=== PATIENT | male | born 1960 | race Caucasian/White ===

== ENCOUNTER 2017-08-18 01:05 | Emergency (ER) | payer MEDICAID ==
[~2017-08-18] VITALS: Ht 172.7 cm; Wt 67.8 kg
[~2017-08-18 01:05] MED LIST: CIPR500T87 PO; METR500T8 PO; PRED10TA PO; PRED20TA PO
[2017-08-18 01:07] VITALS: BP 143/90
[2017-08-18] MEDS ORDERED: PERMETHRIN CRM 5%, 60GM TP SCH (02:00)
[2017-08-18] MEDS ORDERED: PERMETHRIN CRM 5%, 60GM ONE (02:14)
== END 2017-08-18 02:40 | disposition home or self-care (01) ==
LOC: ED 02:27
DX: R21 Rash and other nonspecific skin eruption (principal); J44.9 Chronic obstructive pulmonary disease, unspecified; K21.9 Gastro-esophageal reflux disease without esophagitis; Z59.0 Homelessness; Z90.49 Acquired absence of other specified parts of digestive tract
CPT/HCPCS: 99283

== ENCOUNTER 2017-08-21 12:03 | Emergency (ER) | payer MEDICAID ==
[~2017-08-21] VITALS: Ht 175.3 cm; Wt 68.3 kg
[2017-08-21 12:15] VITALS: BP 130/81
[2017-08-21] MEDS ORDERED: hydrOXyzine 50MG TABLET PO ONE (13:00)
== END 2017-08-21 13:09 | disposition home or self-care (01) ==
LOC: ED 13:00
DX: S40.261A Insect bite (nonvenomous) of right shoulder, initial encounter (principal); S40.862A Insect bite (nonvenomous) of left upper arm, initial encounter; S40.861A Insect bite (nonvenomous) of right upper arm, initial encounter; S50.362A Insect bite (nonvenomous) of left elbow, initial encounter; S50.361A Insect bite (nonvenomous) of right elbow, initial encounter; J44.9 Chronic obstructive pulmonary disease, unspecified; K21.9 Gastro-esophageal reflux disease without esophagitis; W57.XXXA Bitten or stung by nonvenomous insect and other nonvenomous arthropods, initial encounter; Y93.89 Activity, other specified; Y92.89 Other specified places as the place of occurrence of the external cause; Y99.8 Other external cause status
CPT/HCPCS: 99283

== ENCOUNTER 2017-08-28 16:30 | Emergency (ER) | payer MEDICAID ==
[~2017-08-28] VITALS: Ht 170.2 cm; Wt 72.7 kg
[2017-08-28 16:53] VITALS: BP 122/88
== END 2017-08-28 17:05 | disposition home or self-care (01) ==
LOC: ED 16:59
DX: B86 Scabies (principal); J44.9 Chronic obstructive pulmonary disease, unspecified; K21.9 Gastro-esophageal reflux disease without esophagitis; Z59.0 Homelessness
CPT/HCPCS: 99283

== ENCOUNTER 2018-05-29 15:37 | Emergency (ER) | payer SELFPAY ==
[~2018-05-29] VITALS: Ht 172.7 cm; Wt 63.6 kg
[2018-05-29 15:46] VITALS: BP 129/88
== END 2018-05-29 16:21 | disposition home or self-care (01) ==
LOC: ED 16:15
DX: S40.261A Insect bite (nonvenomous) of right shoulder, initial encounter (principal); S50.861A Insect bite (nonvenomous) of right forearm, initial encounter; S60.561A Insect bite (nonvenomous) of right hand, initial encounter; L03.113 Cellulitis of right upper limb; J44.9 Chronic obstructive pulmonary disease, unspecified; W57.XXXA Bitten or stung by nonvenomous insect and other nonvenomous arthropods, initial encounter; Y93.89 Activity, other specified; Y92.89 Other specified places as the place of occurrence of the external cause; Y99.8 Other external cause status
CPT/HCPCS: 99283

== ENCOUNTER 2018-05-30 06:05 | Emergency (ER) | payer SELFPAY ==
[~2018-05-30] VITALS: Ht 172.7 cm; Wt 64.5 kg
[2018-05-30 06:12] VITALS: BP 144/92
== END 2018-05-30 06:55 | disposition home or self-care (01) ==
LOC: ED 06:30
DX: J34.0 Abscess, furuncle and carbuncle of nose (principal); L03.213 Periorbital cellulitis; L03.113 Cellulitis of right upper limb; K21.9 Gastro-esophageal reflux disease without esophagitis; J44.9 Chronic obstructive pulmonary disease, unspecified; F10.20 Alcohol dependence, uncomplicated; Z90.89 Acquired absence of other organs; Z59.0 Homelessness
CPT/HCPCS: 99283

== ENCOUNTER 2018-06-01 10:31 | Emergency (ER) | payer SELFPAY ==
[~2018-06-01] VITALS: Ht 172.7 cm; Wt 63.6 kg
[2018-06-01 10:53] VITALS: BP 130/80
== END 2018-06-01 11:30 | disposition home or self-care (01) ==
LOC: ED 11:24
DX: J34.0 Abscess, furuncle and carbuncle of nose (principal); L03.113 Cellulitis of right upper limb; F10.20 Alcohol dependence, uncomplicated; K21.9 Gastro-esophageal reflux disease without esophagitis; J44.9 Chronic obstructive pulmonary disease, unspecified; Z59.0 Homelessness
CPT/HCPCS: 99283

== ENCOUNTER 2018-07-05 11:37 | Emergency (ER) | payer OTHER ==
[~2018-07-05] VITALS: Ht 175.3 cm; Wt 64.0 kg
[2018-07-05 11:39] VITALS: BP 117/78
[2018-07-05] MEDS ORDERED: DIPH,PERTUSS(ACELL),TET VAC/PF 0.5 ML IM-VACC ONE ×2 (12:00→12:37)
== END 2018-07-05 12:56 | disposition home or self-care (01) ==
LOC: ED 11:47
DX: S01.81XA Laceration without foreign body of other part of head, initial encounter (principal); S01.412A Laceration without foreign body of left cheek and temporomandibular area, initial encounter; S00.31XA Abrasion of nose, initial encounter; K21.9 Gastro-esophageal reflux disease without esophagitis; J44.9 Chronic obstructive pulmonary disease, unspecified; F17.200 Nicotine dependence, unspecified, uncomplicated; W01.0XXA Fall on same level from slipping, tripping and stumbling without subsequent striking against object, initial encounter; Y93.01 Activity, walking, marching and hiking; Y92.410 Unspecified street and highway as the place of occurrence of the external cause; Y99.9 Unspecified external cause status
CPT/HCPCS: 12052; 90471; 90715

== ENCOUNTER 2018-07-10 11:31 | Emergency (ER) | payer MEDICAID, OTHER ==
[~2018-07-10] VITALS: Ht 172.7 cm; Wt 71.2 kg
[2018-07-10] MEDS ORDERED: BACITRACIN ZINC OINT 500U/GM, 0.9 GM ONE (12:12)
[2018-07-10 12:19] VITALS: BP 122/81
== END 2018-07-10 12:29 | disposition home or self-care (01) ==
LOC: ED 11:54
DX: Z48.02 Encounter for removal of sutures (principal); K21.9 Gastro-esophageal reflux disease without esophagitis; J44.9 Chronic obstructive pulmonary disease, unspecified; F17.200 Nicotine dependence, unspecified, uncomplicated; Z72.9 Problem related to lifestyle, unspecified; Z90.89 Acquired absence of other organs; Z87.01 Personal history of pneumonia (recurrent); Z87.09 Personal history of other diseases of the respiratory system; Z87.2 Personal history of diseases of the skin and subcutaneous tissue
CPT/HCPCS: 99281

== ENCOUNTER 2018-07-12 12:42 | Inpatient (IN) | payer MEDICAID, OTHER ==
[~2018-07-12] VITALS: Ht 172.7 cm; Wt 67.0 kg
[2018-07-12 13:21] LABS: MEAN CORPUSCULAR HEMOGLOBIN 33.2 pg (27.5-34.5); MEAN CORPUSCULAR VOLUME 97.7 fL (81-97); MEAN PLATELET VOLUME 7.2 fL (7.4-10.4); PLATELET COUNT 175 x10^3/uL (130-400); RED BLOOD COUNT 3.71 x10^6/uL (4.38-5.82); RED CELL DISTRIBUTION WIDTH 12.8 % (9.4-14.8)
[2018-07-12] MEDS ORDERED: ACETAMINOPHEN 500 MG TABLET ONE (13:22)
[2018-07-12] MEDS ORDERED: SODIUM CHLORIDE 0.9% 1,000ML IVBOLUS ONE ×2 (13:30)
[2018-07-12] MEDS ORDERED: SODIUM CHLORIDE FLUSH 10ML SYR IVF ONE (13:30)
[2018-07-12] MEDS ORDERED: ACETAMINOPHEN 500 MG TABLET PO ONE (13:30)
[2018-07-12] MEDS ORDERED: CEFTRIAXONE PMX 1GM/50ML 50 ML IV ONE (13:30)
[2018-07-12] MEDS ORDERED: ALBUTEROL/IPRATROPIUM 2.5MG/0.5MG, 3 ML NPPB ONE (13:30)
[2018-07-12 13:34] LABS: INTERNATIONAL NORMALIZED RATIO 1.03 (0.93-1.1); PROTHROMBIN TIME 10.9 Seconds (9.6-11.5)
[2018-07-12 13:35] LABS: ALANINE AMINOTRANSFERASE 17 U/L (12-78); ALBUMIN 2.9 g/dL (3.4-5.0); ANION GAP 10 mmol/L (5-15); CALCIUM 7.5 mg/dL (8.5-10.1); CHLORIDE 103 mmol/L (98-107); CREATININE 0.87 mg/dL (0.7-1.3)
[2018-07-12 13:37] LABS: ALKALINE PHOSPHATASE 70 U/L (45-117); BILIRUBIN,TOTAL 0.8 mg/dL (0.2-1.0); TOTAL PROTEIN 6.9 g/dL (6.4-8.2)
[2018-07-12] MEDS ORDERED: ALBUTEROL/IPRATROPIUM 2.5MG/0.5MG, 3 ML ONE (13:40)
[2018-07-12 14:09] LABS: MD YES
[2018-07-12 14:10] LABS: BAND#(MANUAL) 1.12 x10^3/uL; BANDS%(MANUAL) 11 % (0-7); LYMPH#(MANUAL) 1.02 x10^3/uL (1-3.4); LYMPHS% (MANUAL) 10 % (22-44); MONOS#(MANUAL) 0.31 x10^3/uL (0.3-2.7); MONOS% (MANUAL) 3 % (2-9); SEG#(MANUAL) 7.75 x10^3/uL (1.8-6.8); SEGS% (MANUAL) 76 % (42-75)
[2018-07-12 14:11] LABS: <PLATELET ESTIMATE> ADEQUATE; <PLT MORPHOLOGY> NORMAL PLT MORPH; <RBC MORPHOLOGY> NORMAL
[2018-07-12 14:13] LABS: MICROSCOPIC NOT IND
[2018-07-12 14:14] LABS: CULTURE INDICATED? NO
[2018-07-12] MEDS ORDERED: CEFTRIAXONE PMX 1GM/50ML 50 ML ONE (14:19)
[2018-07-12] MEDS ORDERED: OMNIPAQUE 350 MG/ML, 100ML BOTTLE ONE (14:29)
[2018-07-12] MEDS ORDERED: AZITHROMYCIN 500 MG in SODIUM CHLORIDE 0.9% 250 ML IV ONE (15:00)
[2018-07-12 15:22] LABS: RAPID INFLUENZA A Negative (Negative); RAPID INFLUENZA B Negative (Negative)
[2018-07-12 15:45] VITALS: BP 103/69
[2018-07-12] MEDS ORDERED: DOCUSATE 100 MG CAPSULE PO PRN (16:00)
[2018-07-12] MEDS ORDERED: ONDANSETRON 2MG/ML, 2ML IVPush PRN (16:00)
[2018-07-12] MEDS ORDERED: LABETALOL 5MG/ML, 20ML IVPush PRN (16:00)
[2018-07-12] MEDS ORDERED: IBUPROFEN 600 MG TABLET PO PRN (16:00)
[2018-07-12] MEDS ORDERED: BISACODYL 10 MG SUPP PR PRN (16:00)
[2018-07-12] MEDS ORDERED: ONDANSETRON ODT 4 MG PO PRN (16:00)
[2018-07-12] MEDS ORDERED: POLYETHYLENE GLYCOL 17 GM PACKET PO PRN (16:00)
[2018-07-12] MEDS ORDERED: ENALAPRILAT 1.25 MG/ML, 2ML IVPush PRN (16:00)
[2018-07-12] MEDS: NS + 20MEQ KCL 1,000 ML IV SCH (16:09)
[2018-07-12] MEDS: ENOXAPARIN 40 MG/0.4 ML SQ SCH (16:25)
[2018-07-12 16:30] VITALS: BP 103/69
[2018-07-12] MEDS: ALBUTEROL/IPRATROPIUM 2.5MG/0.5MG, 3 ML NPPB SCH (18:12)
[2018-07-12 18:49] VITALS: BP 101/59
[2018-07-13] MEDS: NS + 20MEQ KCL 1,000 ML IV SCH ×3 (00:03→17:48)
[2018-07-13 01:27] VITALS: BP 96/63
[2018-07-13 05:46] LABS: MEAN CORPUSCULAR HEMOGLOBIN 33.6 pg (27.5-34.5); MEAN CORPUSCULAR HGB CONC 34.2 g/dL (33.2-36.2); MEAN CORPUSCULAR VOLUME 98.1 fL (81-97); MEAN PLATELET VOLUME 7.6 fL (7.4-10.4); PLATELET COUNT 162 x10^3/uL (130-400); RED BLOOD COUNT 3.62 x10^6/uL (4.38-5.82); RED CELL DISTRIBUTION WIDTH 13.3 % (9.4-14.8)
[2018-07-13 05:50] LABS: ANION GAP 6 mmol/L (5-15); CHLORIDE 111 mmol/L (98-107)
[2018-07-13 05:52] LABS: CREATININE 0.71 mg/dL (0.7-1.3)
[2018-07-13 06:09] LABS: MD YES
[2018-07-13 06:12] LABS: BAND#(MANUAL) 1.48 x10^3/uL; BANDS%(MANUAL) 20 % (0-7); LYMPH#(MANUAL) 1.11 x10^3/uL (1-3.4); LYMPHS% (MANUAL) 15 % (22-44); MONOS#(MANUAL) 0.44 x10^3/uL (0.3-2.7); MONOS% (MANUAL) 6 % (2-9); SEG#(MANUAL) 4.37 x10^3/uL (1.8-6.8); SEGS% (MANUAL) 59 % (42-75)
[2018-07-13 06:13] LABS: <PLATELET ESTIMATE> ADEQUATE; <PLT MORPHOLOGY> NORMAL PLT MORPH; <RBC MORPHOLOGY> NORMAL
[2018-07-13 06:45] VITALS: BP 112/66
[2018-07-13] MEDS: ALBUTEROL/IPRATROPIUM 2.5MG/0.5MG, 3 ML NPPB SCH ×4 (07:05→20:10)
[2018-07-13 13:13] VITALS: BP 124/63
[2018-07-13] MEDS: CEFTRIAXONE PMX 1GM/50ML 50 ML IV SCH (13:29)
[2018-07-13] MEDS: ACETAMINOPHEN 325 MG TABLET PO PRN ×2 (13:29→17:48)
[2018-07-13] MEDS: AZITHROMYCIN 500 MG in SODIUM CHLORIDE 0.9% 250 ML IV SCH (15:00)
[2018-07-13] MEDS: ENOXAPARIN 40 MG/0.4 ML SQ SCH (17:48)
[2018-07-13 18:48] VITALS: BP_SYST 117; BP_SYST 97; BP_DIAS 57; BP_DIAS 80
[2018-07-14] MEDS: NS + 20MEQ KCL 1,000 ML IV SCH (00:47)
[2018-07-14 01:37] VITALS: BP 101/62
[2018-07-14] MEDS: GUAIFENESIN/DM 200-20MG, 10ML UDC PO PRN (05:04)
[2018-07-14 06:47] VITALS: BP 109/70
[2018-07-14] MEDS: ALBUTEROL/IPRATROPIUM 2.5MG/0.5MG, 3 ML NPPB SCH ×2 (07:35→10:05)
[2018-07-14 12:34] VITALS: BP 115/73
[2018-07-14] MEDS: CEFTRIAXONE PMX 1GM/50ML 50 ML IV SCH (13:11)
[2018-07-14] MEDS ORDERED: ALBUTEROL/IPRATROPIUM 2.5MG/0.5MG, 3 ML NPPB PRN (15:30)
[2018-07-14] MEDS: AZITHROMYCIN 500 MG in SODIUM CHLORIDE 0.9% 250 ML IV SCH (16:06)
[2018-07-14] MEDS: ACETAMINOPHEN 325 MG TABLET PO PRN (16:06)
[2018-07-14] MEDS: ENOXAPARIN 40 MG/0.4 ML SQ SCH (16:06)
[2018-07-14 19:36] VITALS: BP 114/72
[2018-07-15] MEDS: GUAIFENESIN/DM 200-20MG, 10ML UDC PO PRN ×2 (00:40→15:22)
[2018-07-15 01:38] VITALS: BP 136/84
[2018-07-15 05:38] LABS: ANION GAP 6 mmol/L (5-15); CALCIUM 8.5 mg/dL (8.5-10.1); CHLORIDE 103 mmol/L (98-107); CREATININE 0.72 mg/dL (0.7-1.3)
[2018-07-15 07:51] VITALS: BP 94/54
[2018-07-15 12:45] VITALS: BP 112/77
[2018-07-15] MEDS: CEFTRIAXONE PMX 1GM/50ML 50 ML IV SCH (13:00)
[2018-07-15] MEDS ORDERED: AZIT500T5 PO (13:05)
[2018-07-15] MEDS ORDERED: OMEP-110 PO (13:06)
[2018-07-15] MEDS: AZITHROMYCIN 500 MG in SODIUM CHLORIDE 0.9% 250 ML IV SCH (15:00)
[2018-07-15] MEDS: ENOXAPARIN 40 MG/0.4 ML SQ SCH (16:00)
== END 2018-07-15 17:44 | disposition home or self-care (01) | DRG 871 ==
LOC: ED 15:00 → 3NE 15:31
PROVIDERS: ADMIT Internal Medicine; ATTEND Internal Medicine
DX: A41.9 Sepsis, unspecified organism (principal); E43 Unspecified severe protein-calorie malnutrition; J18.9 Pneumonia, unspecified organism; E87.1 Hypo-osmolality and hyponatremia; J44.0 Chronic obstructive pulmonary disease with (acute) lower respiratory infection; E83.39 Other disorders of phosphorus metabolism; E87.6 Hypokalemia; F17.210 Nicotine dependence, cigarettes, uncomplicated; K21.9 Gastro-esophageal reflux disease without esophagitis; K74.60 Unspecified cirrhosis of liver; Z59.0 Homelessness; Z87.01 Personal history of pneumonia (recurrent); F10.20 Alcohol dependence, uncomplicated; Z68.22 Body mass index [BMI] 22.0-22.9, adult
CPT/HCPCS: 36415; 84145; 87400; 99285; J7620; 71045; 71275; 80048; 80053; 81003; 83605; 83735; 84100; 85025; 85610; 85730; 87040; 87070; 87205; 93005; 94640; 96361; 96374; G0378; J0456; J0696; J1650; J3480; Q9967; J7030; J7050

== ENCOUNTER 2018-08-14 17:15 | Emergency (ER) | payer MEDICAID ==
[~2018-08-14] VITALS: Ht 172.7 cm; Wt 69.1 kg
[~2018-08-14 17:15] MED LIST changes: +AZIT500T5 PO; +METR-142 PO; -METR500T8 PO; +OMEP-110 PO
[2018-08-14 18:24] LABS: BASOPHILS # (AUTO) 0.04 x10^3/uL (0-0.1); BASOPHILS % (AUTO) 1 % (0-1); EOSINOPHILS # (AUTO) 0.09 x10^3/uL (0-0.4); EOSINOPHILS % (AUTO) 2 % (1-7); LYMPHOCYTES # (AUTO) 2.71 x10^3/uL (1-3.4); LYMPHOCYTES % (AUTO) 48 % (22-44); MD NO; MEAN CORPUSCULAR HEMOGLOBIN 33.7 pg (27.5-34.5); MEAN CORPUSCULAR HGB CONC 34.4 g/dL (33.2-36.2); MEAN CORPUSCULAR VOLUME 97.7 fL (81-97); MEAN PLATELET VOLUME 7.6 fL (7.4-10.4); MONOCYTES # (AUTO) 0.51 x10^3/uL (0.2-0.8); MONOCYTES % (AUTO) 9 % (2-9); NEUTROPHILS # (AUTO) 2.35 x10^3/uL (1.8-6.8); NEUTROPHILS % (AUTO) 41 % (42-75); PLATELET COUNT 183 x10^3/uL (130-400); RED BLOOD COUNT 4.24 x10^6/uL (4.38-5.82); RED CELL DISTRIBUTION WIDTH 14.9 % (9.4-14.8)
[2018-08-14] MEDS ORDERED: ALBUTEROL/IPRATROPIUM 2.5MG/0.5MG, 3 ML ONE (18:25)
[2018-08-14] MEDS ORDERED: ALBUTEROL/IPRATROPIUM 2.5MG/0.5MG, 3 ML NPPB ONE (18:30)
[2018-08-14 18:33] LABS: ALBUMIN 3.7 g/dL (3.4-5.0); ANION GAP 8 mmol/L (5-15); CALCIUM 8.3 mg/dL (8.5-10.1); CHLORIDE 104 mmol/L (98-107)
[2018-08-14 18:39] LABS: ALANINE AMINOTRANSFERASE 23 U/L (12-78); ALKALINE PHOSPHATASE 81 U/L (45-117); BILIRUBIN,TOTAL 0.6 mg/dL (0.2-1.0); CREATININE 0.86 mg/dL (0.7-1.3); TOTAL PROTEIN 8.1 g/dL (6.4-8.2); TROPONIN I < 0.015 ng/mL (0.000-0.045)
[2018-08-14 19:38] VITALS: BP 117/76
== END 2018-08-14 20:07 | disposition home or self-care (01) ==
LOC: ED 19:58
DX: J44.1 Chronic obstructive pulmonary disease with (acute) exacerbation (principal); J15.9 Unspecified bacterial pneumonia
CPT/HCPCS: 36415; 71046; 80053; 84484; 85025; 93005; 94640; 99284; J7512; J7620

== ENCOUNTER 2018-09-14 13:47 | Inpatient (IN) | payer MEDICAID ==
[~2018-09-14] VITALS: Ht 172.7 cm; Wt 68.2 kg
[~2018-09-14 13:47] MED LIST changes: -METR-142 PO; +METR-90 PO
[2018-09-14 14:21] LABS: BASOPHILS # (AUTO) 0.05 x10^3/uL (0-0.1); BASOPHILS % (AUTO) 1 % (0-1); EOSINOPHILS % (AUTO) 0 % (1-7); LYMPHOCYTES # (AUTO) 3.43 x10^3/uL (1-3.4); LYMPHOCYTES % (AUTO) 31 % (22-44); MD NO; MEAN CORPUSCULAR HEMOGLOBIN 33.2 pg (27.5-34.5); MEAN CORPUSCULAR HGB CONC 33.8 g/dL (33.2-36.2); MEAN CORPUSCULAR VOLUME 98.5 fL (81-97); MEAN PLATELET VOLUME 7.1 fL (7.4-10.4); MONOCYTES % (AUTO) 10 % (2-9); NEUTROPHILS # (AUTO) 6.41 x10^3/uL (1.8-6.8); NEUTROPHILS % (AUTO) 58 % (42-75); PLATELET COUNT 249 x10^3/uL (130-400); RED BLOOD COUNT 4.48 x10^6/uL (4.38-5.82); RED CELL DISTRIBUTION WIDTH 15.9 % (9.4-14.8)
[2018-09-14 14:29] LABS: ALBUMIN 4.3 g/dL (3.4-5.0); ANION GAP 10 mmol/L (5-15); CALCIUM 8.8 mg/dL (8.5-10.1); CHLORIDE 97 mmol/L (98-107)
[2018-09-14 14:34] LABS: ALANINE AMINOTRANSFERASE 28 U/L (12-78); ALKALINE PHOSPHATASE 96 U/L (45-117); BILIRUBIN,TOTAL 0.8 mg/dL (0.2-1.0); CREATININE 0.86 mg/dL (0.7-1.3); TOTAL PROTEIN 8.8 g/dL (6.4-8.2); TROPONIN I < 0.015 ng/mL (0.000-0.045)
[2018-09-14] MEDS: ALBUTEROL/IPRATROPIUM 2.5MG/0.5MG, 3 ML NPPB SCH ×3 (14:35→20:10)
--- NOTE | 2018-09-14 14:47 | NUR ---
Pt presents for backpain, SOB starting this AM. Pt 88% on RA. lungs coarse. Pt NAD.
[2018-09-14] MEDS ORDERED: ALBUTEROL/IPRATROPIUM 2.5MG/0.5MG, 3 ML ONE ×2 (14:56)
[2018-09-14] MEDS ORDERED: PIPERACILLIN/TAZO/PMX 3.375GM 50 ML IVPB ONE (16:00)
[2018-09-14] MEDS ORDERED: PIPERACILLIN/TAZO/PMX 3.375GM 50 ML ONE (16:04)
[2018-09-14] MEDS ORDERED: D5%-0.45NACL+KCL 20MEQ 1,000 ML IV SCH (16:08)
[2018-09-14] MEDS: NICOTINE 14MG/24 HR PATCH.TD24 TD SCH (16:30)
[2018-09-14] MEDS ORDERED: BACLOFEN 10 MG TABLET PO PRN (16:30)
[2018-09-14] MEDS ORDERED: ACETAMINOPHEN 325 MG TABLET PO PRN (16:30)
[2018-09-14] MEDS ORDERED: LORazepam 2 MG/ML, 1ML IV PRN (16:30)
[2018-09-14] MEDS ORDERED: LORazepam 1MG TABLET PO PRN (16:30)
[2018-09-14] MEDS ORDERED: THIAMINE 100MG TABLET PO ONE (16:30)
[2018-09-14] MEDS ORDERED: hydrALAzine 20 MG/ML, 1ML IVPush PRN (16:30)
[2018-09-14] MEDS ORDERED: SODIUM CHLORIDE 0.9% 1,000ML IVBOLUS PRN (16:30)
[2018-09-14] MEDS ORDERED: KETOROLAC 30 MG/1 ML IM PRN (16:30)
[2018-09-14] MEDS ORDERED: IBUPROFEN 600 MG TABLET PO PRN (16:30)
[2018-09-14] MEDS ORDERED: TRAZODONE 50MG TABLET PO PRN (16:30)
[2018-09-14 16:41] VITALS: BP 125/73
[2018-09-14 16:50] VITALS: BP 125/73
[2018-09-14] MEDS ORDERED: POTASSIUM CHLORIDE 20 MEQ, MAGNESIUM SULFATE 1 GM, MVI ADULT 10 ML, THIAMINE 200 MG, FO... IV SCH (17:00)
[2018-09-14] MEDS: POTASSIUM CHLORIDE 20 MEQ, MAGNESIUM SULFATE 1 GM, MVI ADULT 10 ML, THIAMINE 200 MG, FO... IV SCH (19:44)
[2018-09-14 19:48] VITALS: BP 117/70
[2018-09-14 21:03] LABS: TROPONIN I < 0.015 ng/mL (0.000-0.045)
[2018-09-14] MEDS: PIPERACILLIN/TAZO/PMX 4.5GM 100 ML IV SCH (22:14)
[2018-09-15 00:19] VITALS: BP 118/64
[2018-09-15] MEDS: D5%-0.45NACL+KCL 20MEQ 1,000 ML IV SCH ×3 (04:41→23:30)
[2018-09-15 06:02] LABS: BASOPHILS # (AUTO) 0.02 x10^3/uL (0-0.1); BASOPHILS % (AUTO) 0 % (0-1); EOSINOPHILS # (AUTO) 0.01 x10^3/uL (0-0.4); EOSINOPHILS % (AUTO) 0 % (1-7); LYMPHOCYTES # (AUTO) 1.61 x10^3/uL (1-3.4); LYMPHOCYTES % (AUTO) 21 % (22-44); MD NO; MEAN CORPUSCULAR HEMOGLOBIN 34.4 pg (27.5-34.5); MEAN CORPUSCULAR HGB CONC 34.8 g/dL (33.2-36.2); MEAN CORPUSCULAR VOLUME 98.8 fL (81-97); MEAN PLATELET VOLUME 7.7 fL (7.4-10.4); MONOCYTES # (AUTO) 0.58 x10^3/uL (0.2-0.8); MONOCYTES % (AUTO) 8 % (2-9); NEUTROPHILS % (AUTO) 71 % (42-75); PLATELET COUNT 199 x10^3/uL (130-400)
[2018-09-15] MEDS: PIPERACILLIN/TAZO/PMX 4.5GM 100 ML IV SCH ×3 (06:04→22:33)
[2018-09-15 06:12] LABS: ALBUMIN 3.4 g/dL (3.4-5.0); ANION GAP 8 mmol/L (5-15); CALCIUM 8.8 mg/dL (8.5-10.1); CHLORIDE 102 mmol/L (98-107)
[2018-09-15 06:16] LABS: ALANINE AMINOTRANSFERASE 21 U/L (12-78); ALKALINE PHOSPHATASE 81 U/L (45-117); BILIRUBIN,TOTAL 0.9 mg/dL (0.2-1.0); CREATININE 0.63 mg/dL (0.7-1.3); TOTAL PROTEIN 7.5 g/dL (6.4-8.2)
[2018-09-15] MEDS: ALBUTEROL/IPRATROPIUM 2.5MG/0.5MG, 3 ML NPPB SCH ×2 (06:46→19:51)
[2018-09-15 07:34] VITALS: BP 115/68
[2018-09-15] MEDS: predniSONE 50MG TABLET PO SCH (08:15)
[2018-09-15] MEDS: SENNA/DOCUSATE TABLET PO SCH (08:16)
[2018-09-15 13:25] VITALS: BP 127/76
[2018-09-15] MEDS: NICOTINE 14MG/24 HR PATCH.TD24 TD SCH (15:47)
[2018-09-15 18:53] VITALS: BP 116/66
[2018-09-16] MEDS: POTASSIUM CHLORIDE 20 MEQ, MAGNESIUM SULFATE 1 GM, MVI ADULT 10 ML, THIAMINE 200 MG, FO... IV SCH (00:11)
[2018-09-16 00:56] VITALS: BP 131/78
[2018-09-16] MEDS: PIPERACILLIN/TAZO/PMX 4.5GM 100 ML IV SCH (05:52)
[2018-09-16 07:45] VITALS: BP 129/77
[2018-09-16] MEDS: ALBUTEROL/IPRATROPIUM 2.5MG/0.5MG, 3 ML NPPB SCH (08:30)
[2018-09-16] MEDS ORDERED: AMOXICILLIN/CLAV 875-125MG TABLET PO SCH (09:00)
[2018-09-16] MEDS ORDERED: DOXYCYCLINE 100MG TABLET PO SCH (09:00)
[2018-09-16] MEDS: SENNA/DOCUSATE TABLET PO SCH (09:00)
[2018-09-16] MEDS ORDERED: PRED50TA PO (09:06)
[2018-09-16] MEDS ORDERED: AMOX1TAB12 PO (09:08)
[2018-09-16] MEDS ORDERED: DOXY100T PO ×2 (09:08)
[2018-09-16] MEDS: predniSONE 50MG TABLET PO SCH (09:16)
[2018-09-16] MEDS ORDERED: DOXY100C15 PO (09:56)
== END 2018-09-16 11:15 | disposition home or self-care (01) | DRG 871 ==
LOC: ED 14:28 → EDIP 15:50 → 3NE 16:35 → DCLOUNGE 09-16 11:10
PROVIDERS: ADMIT Hospitalist; ATTEND Hospitalist
DX: A41.9 Sepsis, unspecified organism (principal); J15.9 Unspecified bacterial pneumonia; J96.01 Acute respiratory failure with hypoxia; J44.0 Chronic obstructive pulmonary disease with (acute) lower respiratory infection; J44.1 Chronic obstructive pulmonary disease with (acute) exacerbation; F10.10 Alcohol abuse, uncomplicated; Y90.9 Presence of alcohol in blood, level not specified; F17.200 Nicotine dependence, unspecified, uncomplicated; K21.9 Gastro-esophageal reflux disease without esophagitis; Z59.0 Homelessness; Z90.49 Acquired absence of other specified parts of digestive tract; Z86.72 Personal history of thrombophlebitis
CPT/HCPCS: 36415; 84145; 99285; J7620; 71046; 80053; 83605; 84484; 85025; 87040; 87070; 87077; 87186; 87205; 93005; 94640; 96374; G0378; J2543; J3411; J3475; J3480; J7030; J7512

== ENCOUNTER 2018-09-21 19:35 | Emergency (ER) | payer MEDICAID ==
[~2018-09-21] VITALS: Ht 172.7 cm; Wt 72.9 kg
[~2018-09-21 19:35] MED LIST changes: +AMOX1TAB12 PO; +DOXY100C15 PO; +DOXY100T PO; +PRED50TA PO
[2018-09-21 19:41] VITALS: BP 124/84
--- NOTE | 2018-09-21 19:51 | NUR ---
PT TO ED AFTER PRIOR DIAGNOSIS OF PNA. COMPLETED ABX PRESCRIBED. PT STATES SOB. UNWILLING TO STATE OTHER PROBLEMS AT THIS TIME. PT VERY UNCOOPERATIVE AND UNWILLING TO ANSWER QUESTIONS. ETOH ODOR. CONNECTED TO MONITOR. O2 SAT 92% ON RA. HX OF COPD. AWAITIN GMD ASSESSMENT. CALL LIGHT WITHIN REACH. PT TO RADIOLOGY AT THIS TIME.
--- NOTE | 2018-09-21 20:22 | NUR ---
PT ELOPED FROM UNIT PRIOR TO RECEIVING DC PAPERS. PT REFUSED TO SIGN AMA FORM
== END 2018-09-21 20:24 | disposition left against medical advice (07) ==
LOC: ED 20:18
DX: J15.9 Unspecified bacterial pneumonia (principal); K21.9 Gastro-esophageal reflux disease without esophagitis; J44.9 Chronic obstructive pulmonary disease, unspecified; Z90.89 Acquired absence of other organs
CPT/HCPCS: 71046; 99283

== ENCOUNTER 2018-10-17 15:21 | Emergency (ER) | payer MEDICAID ==
[~2018-10-17] VITALS: Ht 172.7 cm; Wt 71.7 kg
[2018-10-17 15:23] VITALS: BP 116/81
[2018-10-17] MEDS ORDERED: ALBUTEROL SULFATE 2.5 MG/3 ML NPPB ONE (16:00)
[2018-10-17] MEDS ORDERED: ALBUTEROL SULFATE 2.5 MG/3 ML ONE (16:00)
== END 2018-10-17 16:27 | disposition home or self-care (01) ==
LOC: ED 16:00
DX: B34.9 Viral infection, unspecified (principal); K21.9 Gastro-esophageal reflux disease without esophagitis; J44.9 Chronic obstructive pulmonary disease, unspecified; F17.200 Nicotine dependence, unspecified, uncomplicated; Z86.19 Personal history of other infectious and parasitic diseases
CPT/HCPCS: 71046; 94640; 99283; J7512; J7613

== ENCOUNTER 2018-10-25 11:36 | Emergency (ER) | payer MEDICAID ==
[~2018-10-25] VITALS: Ht 175.3 cm; Wt 72.0 kg
[2018-10-25 12:17] LABS: BASOPHILS # (AUTO) 0.01 x10^3/uL (0-0.1); BASOPHILS % (AUTO) 0 % (0-1); EOSINOPHILS # (AUTO) 0.02 x10^3/uL (0-0.4); EOSINOPHILS % (AUTO) 0 % (1-7); LYMPHOCYTES # (AUTO) 1.63 x10^3/uL (1-3.4); LYMPHOCYTES % (AUTO) 38 % (22-44); MD NO; MEAN CORPUSCULAR HEMOGLOBIN 33.4 pg (27.5-34.5); MEAN CORPUSCULAR HGB CONC 34.2 g/dL (33.2-36.2); MEAN CORPUSCULAR VOLUME 97.8 fL (81-97); MEAN PLATELET VOLUME 7.5 fL (7.4-10.4); MONOCYTES # (AUTO) 0.46 x10^3/uL (0.2-0.8); MONOCYTES % (AUTO) 11 % (2-9); NEUTROPHILS # (AUTO) 2.15 x10^3/uL (1.8-6.8); NEUTROPHILS % (AUTO) 50 % (42-75); PLATELET COUNT 109 x10^3/uL (130-400); RED BLOOD COUNT 4.24 x10^6/uL (4.38-5.82); RED CELL DISTRIBUTION WIDTH 14.9 % (9.4-14.8)
[2018-10-25 12:25] LABS: RAPID INFLUENZA A Negative (Negative); RAPID INFLUENZA B Negative (Negative)
[2018-10-25 12:29] LABS: ALANINE AMINOTRANSFERASE 50 U/L (12-78); ALBUMIN 3.8 g/dL (3.4-5.0); ANION GAP 6 mmol/L (5-15); CALCIUM 8.3 mg/dL (8.5-10.1); CHLORIDE 104 mmol/L (98-107); CREATININE 0.76 mg/dL (0.7-1.3)
[2018-10-25 12:30] LABS: ALKALINE PHOSPHATASE 107 U/L (45-117); BILIRUBIN,TOTAL 0.3 mg/dL (0.2-1.0); TOTAL PROTEIN 8.1 g/dL (6.4-8.2)
--- NOTE | 2018-10-25 12:41 | NUR ---
PT AMBULATED WITHOUT ASSISTANCE TO BATHROOM
[2018-10-25 12:52] VITALS: BP 109/77
== END 2018-10-25 12:55 | disposition home or self-care (01) ==
LOC: ED 12:17
DX: J15.9 Unspecified bacterial pneumonia (principal); H10.023 Other mucopurulent conjunctivitis, bilateral; F17.210 Nicotine dependence, cigarettes, uncomplicated; J44.9 Chronic obstructive pulmonary disease, unspecified; K21.9 Gastro-esophageal reflux disease without esophagitis; Z86.19 Personal history of other infectious and parasitic diseases
CPT/HCPCS: 36415; 71046; 80053; 85025; 87400; 93005; 99284

== ENCOUNTER 2018-11-10 19:07 | Emergency (ER) | payer MEDICAID ==
[~2018-11-10] VITALS: Ht 172.7 cm; Wt 91.0 kg
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
--- NOTE | 2018-11-10 19:48 | NUR ---
PT TAKEN TO CT SCAN
[2018-11-10] MEDS ORDERED: LIDOCAINE-MPF 1%, 5ML ONE (20:05)
--- NOTE | 2018-11-10 20:06 | NUR ---
LEFT EAR CLEANED WITH SALINE, LEFT HEAD WITH ABRASION CLEANED.
--- NOTE | 2018-11-10 20:58 | NUR ---
PT RESTING IN BED. DRESSING APPLIED TO LEFT EAR. PT CONTINUED TO SLEEP THROUGH TREATMENT.
--- NOTE | 2018-11-10 21:02 | NUR ---
report given to klaudia reddy.
--- NOTE | 2018-11-10 21:50 | NUR ---
PT REMAINS SLEEPING. PT AWAKENS SHORTLY TO PHYSICAL STIMULI HOWEVER PROMPTLY RETURNS TO SLEEP.
--- NOTE | 2018-11-10 22:47 | NUR ---
PATIENT REMAINS SLEEPING. VITALS STABLE
--- NOTE | 2018-11-10 23:10 | NUR ---
PT SLEEPING. AROUSABLE, DENIES PAIN. VSS
--- NOTE | 2018-11-10 23:35 | NUR ---
PT AWOKEN BY VERBAL STIMULI. PT REQUEST BR. PT ABLE TO AMBULATE WITH STEADY GAIT TO RESTROOM AND BACK INTO BED. PT AGREEABLE TO TAXI VOUCHER TO DROP IN INTERMEDIATE. WOUND CARE EDUCATION GIVEN. PT VERBALIZED UNDERSTANDING. PT UNDERSTAND TO ABSTAIN FROM ALCOHOL. PT AMBULATES TO DC DESK WITH STEADY GAIT.
[2018-11-10 23:36] VITALS: BP 129/74
== END 2018-11-10 23:37 | disposition home or self-care (01) ==
LOC: ED 21:40
DX: S00.412A Abrasion of left ear, initial encounter (principal); S09.90XA Unspecified injury of head, initial encounter; F10.129 Alcohol abuse with intoxication, unspecified; J45.909 Unspecified asthma, uncomplicated; K21.9 Gastro-esophageal reflux disease without esophagitis; J44.9 Chronic obstructive pulmonary disease, unspecified; Y08.89XA Assault by other specified means, initial encounter; Y93.89 Activity, other specified; Y92.89 Other specified places as the place of occurrence of the external cause; Y99.8 Other external cause status
CPT/HCPCS: 36415; 70450; 70486; 80307; 99284

== ENCOUNTER 2018-11-12 13:03 | Emergency (ER) | payer MEDICAID ==
[~2018-11-12] VITALS: Ht 233.7 cm; Wt 71.8 kg
[2018-11-12 13:35] VITALS: BP 105/63
--- NOTE | 2018-11-12 16:39 | NUR ---
NOT IN LOBBY 2 1618, 1630, 1639
== END 2018-11-12 16:51 | disposition left against medical advice (07) ==
LOC: ED 16:45
DX: R51 Headache (principal)
CPT/HCPCS: 70450; 99284

== ENCOUNTER 2018-11-17 18:27 | Emergency (ER) | payer MEDICAID ==
[~2018-11-17] VITALS: Ht 172.7 cm; Wt 68.1 kg
[2018-11-17 18:47] VITALS: BP 118/78
[2018-11-17 19:57] LABS: ALANINE AMINOTRANSFERASE 140 U/L (12-78); ANION GAP 8 mmol/L (5-15); CALCIUM 8.6 mg/dL (8.5-10.1); CHLORIDE 102 mmol/L (98-107); CREATININE 0.79 mg/dL (0.7-1.3); SALICYLATE LEVEL 2.1 mg/dL (2.8-20.0)
[2018-11-17 20:00] LABS: ACETAMINOPHEN < 2 mcg/mL (10-30); ALKALINE PHOSPHATASE 99 U/L (45-117); BILIRUBIN,TOTAL 0.2 mg/dL (0.2-1.0); TOTAL PROTEIN 8.2 g/dL (6.4-8.2)
[2018-11-17 20:19] LABS: MD YES; MEAN CORPUSCULAR HEMOGLOBIN 33.4 pg (27.5-34.5); MEAN CORPUSCULAR HGB CONC 34.6 g/dL (33.2-36.2); MEAN CORPUSCULAR VOLUME 96.6 fL (81-97); MEAN PLATELET VOLUME 7.3 fL (7.4-10.4); PLATELET COUNT 225 x10^3/uL (130-400); RED BLOOD COUNT 4.68 x10^6/uL (4.38-5.82); RED CELL DISTRIBUTION WIDTH 14.4 % (9.4-14.8)
[2018-11-17 20:46] LABS: BAND#(MANUAL) 0.05 x10^3/uL; BANDS%(MANUAL) 1 % (0-7); BASOS#(MANUAL) 0.05 x10^3/uL (0-0.1); BASOS% (MANUAL) 1 % (0-1); EOS#(MANUAL) 0.05 x10^3/uL (0.0-0.4); EOS% (MANUAL) 1 % (1-7); LYMPHS% (MANUAL) 50 % (22-44); MONOS#(MANUAL) 0.46 x10^3/uL (0.3-2.7); MONOS% (MANUAL) 10 % (2-9); REACTIVE LYMPHS # (MANUAL) 0.28 x10^3/uL (0-0); REACTIVE LYMPHS % (MANUAL) 6 % (0-0); SEG#(MANUAL) 1.43 x10^3/uL (1.8-6.8); SEGS% (MANUAL) 31 % (42-75)
[2018-11-17 20:48] LABS: <PLATELET ESTIMATE> ADEQUATE; <PLT MORPHOLOGY> NORMAL PLT MORPH; <RBC MORPHOLOGY> NORMAL
--- NOTE | 2018-11-17 21:31 | NUR ---
PT TO ROOM INSTRUCTED TO UNDRESS AND PUT ON GOWN. PT SAT ON CHAIR AND WENT TO SLEEP.
[2018-11-17] MEDS ORDERED: DIPH,PERTUSS(ACELL),TET VAC/PF 0.5 ML IM-VACC ONE ×2 (22:00→22:10)
[2018-11-17] MEDS ORDERED: AMOXICILLIN/CLAV 875-125MG TABLET PO SCH (22:00)
[2018-11-17] MEDS ORDERED: THIAMINE 100MG TABLET PO ONE (22:00)
[2018-11-17] MEDS ORDERED: AMOXICILLIN/CLAV 875-125MG TABLET ONE (22:10)
[2018-11-17] MEDS ORDERED: THIAMINE 100MG TABLET ONE (22:11)
== END 2018-11-17 22:25 | disposition home or self-care (01) ==
LOC: ED 21:41
DX: S60.571A Other superficial bite of hand of right hand, initial encounter (principal); J44.9 Chronic obstructive pulmonary disease, unspecified; F10.229 Alcohol dependence with intoxication, unspecified; Z90.49 Acquired absence of other specified parts of digestive tract; W54.0XXA Bitten by dog, initial encounter; Y93.89 Activity, other specified; Y92.89 Other specified places as the place of occurrence of the external cause; Y99.8 Other external cause status
CPT/HCPCS: 36415; 80053; 80307; 80329; 85025; 90471; 90715; G0480

== ENCOUNTER 2018-12-10 10:49 | Emergency (ER) | payer MEDICAID ==
[~2018-12-10] VITALS: Ht 172.7 cm; Wt 67.0 kg
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
--- NOTE | 2018-12-10 11:20 | NUR ---
PT MOSTLY SLEEPING, AROUSES EASILY, RA SAT DECREASED TO 84%, PT PLACED ON 2L NC. SAT INC TO 96%, DR VALDEZ AT BEDSIDE TO EVAL PT.
--- NOTE | 2018-12-10 12:07 | NUR ---
PT CONT MOSTLY SLEEPING, AROUSES EASILY. WAITING FOR TEST RESULTS, NO NEEDS EXPRESSED AT THIS TIME.
[2018-12-10 12:08] VITALS: BP 123/72
[2018-12-10 12:14] LABS: ANION GAP 9 mmol/L (5-15); CALCIUM 8.3 mg/dL (8.5-10.1); CHLORIDE 105 mmol/L (98-107); CREATININE 0.76 mg/dL (0.7-1.3)
[2018-12-10 12:18] LABS: BASOPHILS # (AUTO) 0.02 x10^3/uL (0-0.1); BASOPHILS % (AUTO) 1 % (0-1); EOSINOPHILS % (AUTO) 0 % (1-7); LYMPHOCYTES % (AUTO) 21 % (22-44); MD NO; MEAN CORPUSCULAR HEMOGLOBIN 33.4 pg (27.5-34.5); MEAN CORPUSCULAR HGB CONC 34.3 g/dL (33.2-36.2); MEAN CORPUSCULAR VOLUME 97.5 fL (81-97); MEAN PLATELET VOLUME 7.5 fL (7.4-10.4); MONOCYTES # (AUTO) 0.33 x10^3/uL (0.2-0.8); MONOCYTES % (AUTO) 7 % (2-9); NEUTROPHILS # (AUTO) 3.32 x10^3/uL (1.8-6.8); NEUTROPHILS % (AUTO) 71 % (42-75); PLATELET COUNT 147 x10^3/uL (130-400)
--- NOTE | 2018-12-10 14:19 | NUR ---
SPO2 >90% ON RA. RR WNL. SPEECH CLEAR. PT AMBULATORY WITHOUT ASSISTANCE. PT PROVIDED PO FLUIDS/FOOD. DRESSED APPROPRIATELY FOR WEATHER. DC EDUCATION PROVIDED, PT DEMONSTRATES UNDERSTANDING.
== END 2018-12-10 14:22 | disposition home or self-care (01) ==
LOC: ED 11:38
DX: F10.120 Alcohol abuse with intoxication, uncomplicated (principal); F17.200 Nicotine dependence, unspecified, uncomplicated; K21.9 Gastro-esophageal reflux disease without esophagitis; J44.9 Chronic obstructive pulmonary disease, unspecified; Z86.19 Personal history of other infectious and parasitic diseases
CPT/HCPCS: 36415; 71045; 80048; 82040; 85025; 93005; 99284

== ENCOUNTER 2018-12-12 18:40 | Inpatient (IN) | payer MEDICAID ==
[~2018-12-12] VITALS: Ht 172.7 cm; Wt 70.2 kg
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
--- NOTE | 2018-12-12 19:10 | NUR ---
noted pt's spo2-85% on r/a, applied 4 l n/c o2 spo2-93%. pt to xray
[2018-12-12] MEDS ORDERED: ACETAMINOPHEN 500 MG TABLET ONE (19:13)
[2018-12-12] MEDS ORDERED: SODIUM CHLORIDE 0.9% 1,000ML IVBOLUS ONE ×2 (19:30→20:30)
[2018-12-12] MEDS ORDERED: VANCOMYCIN 1,500 MG in SODIUM CHLORIDE 0.9% 250 ML IV ONE (19:30)
[2018-12-12] MEDS ORDERED: PIPERACILLIN/TAZO/PMX 3.375GM 50 ML IVPB ONE (19:30)
[2018-12-12] MEDS ORDERED: ACETAMINOPHEN 500 MG TABLET PO ONE (19:30)
[2018-12-12] MEDS ORDERED: VANCOMYCIN PER PHARMACY IV ONE (19:30)
[2018-12-12] MEDS ORDERED: ALBUTEROL/IPRATROPIUM 2.5MG/0.5MG, 3 ML NPPB ONE (19:30)
[2018-12-12] MEDS ORDERED: SODIUM CHLORIDE FLUSH 10ML SYR IVF ONE (19:30)
--- NOTE | 2018-12-12 19:37 | NUR ---
IV SITE STARTED, LABS DRAWN, IV FLUIDS INFUSING, MONITORS IN PLACE, CALL LIGHT WITHIN REACH. AWAITING LAB RESULTS
[2018-12-12 19:52] LABS: ALBUMIN 3.3 g/dL (3.4-5.0); ANION GAP 12 mmol/L (5-15); CALCIUM 8.5 mg/dL (8.5-10.1); CHLORIDE 94 mmol/L (98-107); CREATININE 0.77 mg/dL (0.7-1.3)
[2018-12-12 19:55] LABS: TROPONIN I < 0.015 ng/mL (0.000-0.045)
[2018-12-12] MEDS ORDERED: MAGNESIUM SULFATE 1 GM, THIAMINE 100 MG, FOLIC ACID 1 MG, MVI ADULT 10 ML in SODIUM CHL... IV ONE (20:00)
[2018-12-12 20:09] LABS: MD YES; MEAN CORPUSCULAR HEMOGLOBIN 33.9 pg (27.5-34.5); MEAN CORPUSCULAR HGB CONC 35.2 g/dL (33.2-36.2); MEAN CORPUSCULAR VOLUME 96.4 fL (81-97); PLATELET COUNT 90 x10^3/uL (130-400); RED CELL DISTRIBUTION WIDTH 15.4 % (9.4-14.8)
[2018-12-12 20:11] LABS: <RBC MORPHOLOGY> NORMAL
[2018-12-12 20:12] LABS: <PLATELET ESTIMATE> DECREASED; <PLT MORPHOLOGY> NORMAL PLT MORPH
[2018-12-12 20:15] LABS: BAND#(MANUAL) 0.89 x10^3/uL; BANDS%(MANUAL) 12 % (0-7); LYMPHS% (MANUAL) 23 % (22-44); MONOS#(MANUAL) 0.37 x10^3/uL (0.3-2.7); MONOS% (MANUAL) 5 % (2-9); SEG#(MANUAL) 4.44 x10^3/uL (1.8-6.8); SEGS% (MANUAL) 60 % (42-75)
--- NOTE | 2018-12-12 21:00 | NUR ---
PT RESTING CALMLY, PROVIDED PT WITH WARM BLANKET, IV FLUIDS INFUSING, MONITORS IN PLACE, CALL LIGHT WIHTIN REACH. AWAITING ROOM FOR ADMIT
[2018-12-12] MEDS ORDERED: ONDANSETRON 2MG/ML, 2ML IVPush PRN (21:30)
[2018-12-12] MEDS ORDERED: ACETAMINOPHEN 325 MG TABLET PO PRN (21:30)
[2018-12-12] MEDS ORDERED: ENALAPRILAT 1.25 MG/ML, 2ML IVPush PRN (21:30)
[2018-12-12] MEDS ORDERED: LABETALOL 5 MG/ML SYRINGE IVPush PRN (21:30)
[2018-12-12 21:58] VITALS: BP 112/63
[2018-12-12] MEDS ORDERED: ZOSYN PER PHARMACY MC PRN (22:00)
[2018-12-12] MEDS ORDERED: VANCOMYCIN PER PHARMACY MC PRN (22:00)
[2018-12-12] MEDS ORDERED: PHARMACOKINETIC MONITORING MC PRN (22:30)
[2018-12-12] MEDS: ENOXAPARIN 40 MG/0.4 ML SQ SCH (22:59)
[2018-12-12] MEDS: LACTATED RINGERS 1,000 ML IV SCH (22:59)
[2018-12-12] MEDS ORDERED: ALBUTEROL/IPRATROPIUM 2.5MG/0.5MG, 3 ML NPPB PRN (23:30)
[2018-12-13] VITALS (7 sets, daily range): BP systolic 69–126; BP diastolic 48–83
[2018-12-13 00:10] LABS: RAPID INFLUENZA A Negative (Negative); RAPID INFLUENZA B Negative (Negative)
[2018-12-13 00:46] LABS: ALANINE AMINOTRANSFERASE 28 U/L (12-78); ALBUMIN 2.7 g/dL (3.4-5.0); BILIRUBIN, DIRECT 0.6 mg/dL (0.1-0.2)
[2018-12-13 00:50] LABS: ALKALINE PHOSPHATASE 65 U/L (45-117); BILIRUBIN,INDIRECT 0.9 mg/dL (0.0-2.0); BILIRUBIN,TOTAL 1.5 mg/dL (0.2-1.0); TOTAL PROTEIN 6.5 g/dL (6.4-8.2); TROPONIN I < 0.015 ng/mL (0.000-0.045)
[2018-12-13] MEDS: PIPERACILLIN/TAZO/PMX 3.375GM 50 ML IV SCH ×4 (02:48→21:31)
[2018-12-13 06:37] LABS: MD YES; MEAN CORPUSCULAR HEMOGLOBIN 33.7 pg (27.5-34.5); MEAN CORPUSCULAR HGB CONC 34.3 g/dL (33.2-36.2); MEAN CORPUSCULAR VOLUME 98.2 fL (81-97); MEAN PLATELET VOLUME 8.1 fL (7.4-10.4); PLATELET COUNT 86 x10^3/uL (130-400); RED BLOOD COUNT 3.84 x10^6/uL (4.38-5.82); RED CELL DISTRIBUTION WIDTH 15.6 % (9.4-14.8)
[2018-12-13 06:46] LABS: ANION GAP 5 mmol/L (5-15); CALCIUM 8.6 mg/dL (8.5-10.1); CHLORIDE 104 mmol/L (98-107); CREATININE 0.68 mg/dL (0.7-1.3)
[2018-12-13 06:49] LABS: TROPONIN I < 0.015 ng/mL (0.000-0.045)
[2018-12-13 06:55] LABS: LYMPH#(MANUAL) 1.28 x10^3/uL (1-3.4); LYMPHS% (MANUAL) 16 % (22-44); MONOS#(MANUAL) 1.28 x10^3/uL (0.3-2.7); MONOS% (MANUAL) 16 % (2-9); SEG#(MANUAL) 5.44 x10^3/uL (1.8-6.8); SEGS% (MANUAL) 68 % (42-75)
[2018-12-13 06:56] LABS: <PLATELET ESTIMATE> DECREASED; <PLT MORPHOLOGY> NORMAL PLT MORPH; <RBC MORPHOLOGY> NORMAL
[2018-12-13] MEDS: ALBUTEROL/IPRATROPIUM 2.5MG/0.5MG, 3 ML NPPB SCH ×3 (07:00→21:00)
[2018-12-13] MEDS ORDERED: CHLORDIAZEPOXIDE 25 MG CAPSULE PO PRN ×3 (08:30)
[2018-12-13] MEDS ORDERED: VANCOMYCIN 1,400 MG in SODIUM CHLORIDE 0.9% 250 ML IV SCH (09:00)
[2018-12-13] MEDS: THIAMINE 100MG TABLET PO SCH (09:44)
[2018-12-13] MEDS: FOLIC ACID 1 MG TABLET PO SCH (09:44)
[2018-12-13] MEDS: MULTIVITAMIN 1 TABLET PO SCH (09:44)
[2018-12-13] MEDS: LACTATED RINGERS 1,000 ML IV SCH ×3 (09:44→22:20)
[2018-12-13 12:46] LABS: CLOSTRIDIUM DIFFICILE ANTIGEN NEGATIVE; CLOSTRIDIUM DIFFICILE TOXIN NEGATIVE (Negative)
[2018-12-13] MEDS: CHLORDIAZEPOXIDE 10 MG CAPSULE PO PRN ×2 (17:41→22:19)
[2018-12-13] MEDS: ENOXAPARIN 40 MG/0.4 ML SQ SCH (22:19)
[2018-12-14 00:36] VITALS: BP 132/66
[2018-12-14] MEDS: CHLORDIAZEPOXIDE 10 MG CAPSULE PO PRN ×3 (02:50→20:57)
[2018-12-14] MEDS: PIPERACILLIN/TAZO/PMX 3.375GM 50 ML IV SCH ×4 (02:50→20:39)
[2018-12-14 05:37] LABS: MEAN CORPUSCULAR HEMOGLOBIN 33.4 pg (27.5-34.5); MEAN CORPUSCULAR VOLUME 98.2 fL (81-97); MEAN PLATELET VOLUME 8.1 fL (7.4-10.4); PLATELET COUNT 98 x10^3/uL (130-400); RED BLOOD COUNT 3.42 x10^6/uL (4.38-5.82); RED CELL DISTRIBUTION WIDTH 15.3 % (9.4-14.8)
[2018-12-14 05:43] LABS: CHLORIDE 105 mmol/L (98-107)
[2018-12-14 05:49] LABS: ANION GAP 7 mmol/L (5-15); CREATININE 0.64 mg/dL (0.7-1.3)
[2018-12-14 06:23] LABS: BASOPHILS # (AUTO) 0.01 x10^3/uL (0-0.1); BASOPHILS % (AUTO) 0 % (0-1); EOSINOPHILS # (AUTO) 0.07 x10^3/uL (0-0.4); EOSINOPHILS % (AUTO) 1 % (1-7); LYMPHOCYTES % (AUTO) 19 % (22-44); MD SCAN; MONOCYTES # (AUTO) 0.87 x10^3/uL (0.2-0.8); MONOCYTES % (AUTO) 13 % (2-9); NEUTROPHILS # (AUTO) 4.61 x10^3/uL (1.8-6.8); NEUTROPHILS % (AUTO) 67 % (42-75)
[2018-12-14 08:01] VITALS: BP 142/81
[2018-12-14] MEDS: FOLIC ACID 1 MG TABLET PO SCH (09:23)
[2018-12-14] MEDS: THIAMINE 100MG TABLET PO SCH (09:23)
[2018-12-14] MEDS: MULTIVITAMIN 1 TABLET PO SCH (09:23)
[2018-12-14] MEDS ORDERED: POTASSIUM CHLORIDE 40 MEQ in SODIUM CHLORIDE 0.9% 500 ML IV ONE (09:30)
[2018-12-14] MEDS: ALBUTEROL/IPRATROPIUM 2.5MG/0.5MG, 3 ML NPPB SCH ×2 (10:40→19:30)
[2018-12-14 14:00] VITALS: BP 115/75
[2018-12-14 19:57] VITALS: BP 119/72
[2018-12-14] MEDS: ENOXAPARIN 40 MG/0.4 ML SQ SCH (22:49)
[2018-12-15 02:19] VITALS: BP 112/65
[2018-12-15] MEDS: PIPERACILLIN/TAZO/PMX 3.375GM 50 ML IV SCH ×2 (02:20→09:01)
[2018-12-15 05:34] LABS: ANION GAP 7 mmol/L (5-15); CALCIUM 8.4 mg/dL (8.5-10.1); CHLORIDE 110 mmol/L (98-107); CREATININE 0.62 mg/dL (0.7-1.3)
[2018-12-15 05:35] LABS: MEAN CORPUSCULAR HGB CONC 33.5 g/dL (33.2-36.2); MEAN CORPUSCULAR VOLUME 98.5 fL (81-97); MEAN PLATELET VOLUME 7.6 fL (7.4-10.4); PLATELET COUNT 138 x10^3/uL (130-400); RED BLOOD COUNT 3.61 x10^6/uL (4.38-5.82); RED CELL DISTRIBUTION WIDTH 15.4 % (9.4-14.8)
[2018-12-15 05:53] LABS: MD YES
[2018-12-15 05:55] LABS: BAND#(MANUAL) 0.05 x10^3/uL; BANDS%(MANUAL) 1 % (0-7); EOS% (MANUAL) 4 % (1-7); MONOS#(MANUAL) 1.05 x10^3/uL (0.3-2.7); MONOS% (MANUAL) 21 % (2-9)
[2018-12-15 05:56] LABS: <RBC MORPHOLOGY> NORMAL; LYMPH#(MANUAL) 1.35 x10^3/uL (1-3.4); LYMPHS% (MANUAL) 27 % (22-44); SEG#(MANUAL) 2.35 x10^3/uL (1.8-6.8); SEGS% (MANUAL) 47 % (42-75)
[2018-12-15 05:57] LABS: <PLATELET ESTIMATE> ADEQUATE; <PLT MORPHOLOGY> NORMAL PLT MORPH
[2018-12-15 07:15] VITALS: BP 122/69
[2018-12-15] MEDS: ALBUTEROL/IPRATROPIUM 2.5MG/0.5MG, 3 ML NPPB SCH (09:00)
[2018-12-15] MEDS: FOLIC ACID 1 MG TABLET PO SCH (09:00)
[2018-12-15] MEDS: MULTIVITAMIN 1 TABLET PO SCH (09:00)
[2018-12-15] MEDS: THIAMINE 100MG TABLET PO SCH (09:00)
[2018-12-15 12:05] VITALS: BP 124/63
[2018-12-15] MEDS ORDERED: FOLI-17 PO (12:40)
[2018-12-15] MEDS ORDERED: DOXY100T10 PO (12:40)
[2018-12-15] MEDS ORDERED: CEFD300C37 PO (12:40)
[2018-12-15] MEDS ORDERED: THIA100T67 PO (12:40)
[2018-12-15] MEDS ORDERED: IPRA3AMP30 NPPB (12:40)
[2018-12-15] MEDS ORDERED: MULT1TAB60 PO (12:40)
== END 2018-12-15 14:04 | disposition home or self-care (01) | DRG 871 ==
LOC: ED 20:14 → 4EST 21:12 → 4WST 23:21 → DCLOUNGE 12-15 13:51
PROVIDERS: ADMIT Family Medicine; ATTEND Family Medicine
DX: A41.9 Sepsis, unspecified organism (principal); J18.1 Lobar pneumonia, unspecified organism; J96.21 Acute and chronic respiratory failure with hypoxia; E87.1 Hypo-osmolality and hyponatremia; E87.2 Acidosis; F10.239 Alcohol dependence with withdrawal, unspecified; J44.0 Chronic obstructive pulmonary disease with (acute) lower respiratory infection; D64.9 Anemia, unspecified; D69.6 Thrombocytopenia, unspecified; F10.229 Alcohol dependence with intoxication, unspecified; F17.210 Nicotine dependence, cigarettes, uncomplicated; K21.9 Gastro-esophageal reflux disease without esophagitis; K74.60 Unspecified cirrhosis of liver; R65.20 Severe sepsis without septic shock; Z59.0 Homelessness; Z86.72 Personal history of thrombophlebitis; Z91.14 Patient's other noncompliance with medication regimen
CPT/HCPCS: 36415; 84145; 87400; 87449; 99285; J7620; 71046; 80048; 80076; 80307; 82040; 83605; 83735; 83880; 84484; 85025; 86738; 87040; 87070; 87081; 87205; 87324; 93005; 94640; 96365; 96375; G0378; J1650; J2543; J3370; J3411; J3475; J3480; J7030; J7040; J7050; J7120

== ENCOUNTER 2018-12-22 08:39 | Emergency (ER) | payer MEDICAID ==
[~2018-12-22] VITALS: Ht 172.7 cm; Wt 68.2 kg
[~2018-12-22 08:39] MED LIST changes: +CEFD300C37 PO; +DOXY100T10 PO; +FOLI-17 PO; +IPRA3AMP30 NPPB; +MULT1TAB60 PO; +THIA100T67 PO
[2018-12-22 08:42] VITALS: BP 115/80
--- NOTE | 2018-12-22 08:51 | NUR ---
EASTON IS AT [facility] BEDSIDE FOR ASSESSMENT/CONSULT.
--- NOTE | 2018-12-22 09:01 | NUR ---
EKG AT THE BEDSIDE
[2018-12-22 09:18] LABS: MEAN CORPUSCULAR HEMOGLOBIN 32.9 pg (27.5-34.5); MEAN CORPUSCULAR HGB CONC 33.6 g/dL (33.2-36.2); MEAN CORPUSCULAR VOLUME 97.8 fL (81-97); MEAN PLATELET VOLUME 6.6 fL (7.4-10.4); PLATELET COUNT 608 x10^3/uL (130-400); RED BLOOD COUNT 3.91 x10^6/uL (4.38-5.82); RED CELL DISTRIBUTION WIDTH 15.9 % (9.4-14.8)
[2018-12-22 09:24] LABS: INTERNATIONAL NORMALIZED RATIO 1.02 (0.93-1.1); PROTHROMBIN TIME 10.7 Seconds (9.6-11.5)
[2018-12-22 09:27] LABS: ALBUMIN 3.2 g/dL (3.4-5.0); ANION GAP 11 mmol/L (5-15); CALCIUM 8.2 mg/dL (8.5-10.1); CHLORIDE 104 mmol/L (98-107)
[2018-12-22 09:30] LABS: ALANINE AMINOTRANSFERASE 29 U/L (12-78); ALKALINE PHOSPHATASE 101 U/L (45-117); BILIRUBIN,TOTAL 0.3 mg/dL (0.2-1.0); CREATININE 0.67 mg/dL (0.7-1.3)
--- NOTE | 2018-12-22 10:01 | NUR ---
PT EATING BREAKFAST ON AN ER. REBECCA. NO ACUTE CHANGES NOTED SINCE HIS ARRIVAL HERE THIS MORNING. I WILL CONTINUE TO MONITOR AND TREAT ORDERED, WELL PRN.
--- NOTE | 2018-12-22 10:04 | NUR ---
PT TO XR W TECH
[2018-12-22 10:10] LABS: MD YES
[2018-12-22 10:16] LABS: BAND#(MANUAL) 0.23 x10^3/uL; BANDS%(MANUAL) 6 % (0-7); BASOS#(MANUAL) 0.19 x10^3/uL (0-0.1); BASOS% (MANUAL) 5 % (0-1); EOS#(MANUAL) 0.11 x10^3/uL (0.0-0.4); EOS% (MANUAL) 3 % (1-7); LYMPH#(MANUAL) 2.36 x10^3/uL (1-3.4); LYMPHS% (MANUAL) 62 % (22-44); MONOS#(MANUAL) 0.11 x10^3/uL (0.3-2.7); MONOS% (MANUAL) 3 % (2-9); NRBC % (MANUAL) 1 % (0-1); SEGS% (MANUAL) 21 % (42-75)
[2018-12-22 10:19] LABS: <PLATELET ESTIMATE> INCREASED; <PLT MORPHOLOGY> NORMAL PLT MORPH; <RBC MORPHOLOGY> NORMAL
--- NOTE | 2018-12-22 12:18 | NUR ---
PT AMBULATED W NO ASSIST AND A STEADY GAIT. PREPARING FOR D/C NOW.
== END 2018-12-22 12:21 | disposition home or self-care (01) ==
LOC: ED 10:12
DX: F10.129 Alcohol abuse with intoxication, unspecified (principal); K29.20 Alcoholic gastritis without bleeding; R10.13 Epigastric pain; J44.9 Chronic obstructive pulmonary disease, unspecified; K21.9 Gastro-esophageal reflux disease without esophagitis; Z72.9 Problem related to lifestyle, unspecified; R51 Headache
CPT/HCPCS: 36415; 70450; 72072; 72125; 80053; 82140; 83690; 85025; 85610; 85730; 93005; 99284

== ENCOUNTER 2019-01-01 12:06 | Emergency (ER) | payer MEDICAID ==
[~2019-01-01] VITALS: Ht 172.7 cm; Wt 63.6 kg
[2019-01-01] MEDS ORDERED: KETOROLAC 30 MG/1 ML ONE (12:14)
[2019-01-01] MEDS ORDERED: PLEASE ENTER HEIGHT AND WEIGHT MC SCH (12:30)
[2019-01-01] MEDS ORDERED: KETOROLAC 30 MG/1 ML IM ONE (12:30)
[2019-01-01 12:33] LABS: MEAN CORPUSCULAR HEMOGLOBIN 33.4 pg (27.5-34.5); MEAN CORPUSCULAR HGB CONC 34.1 g/dL (33.2-36.2); MEAN CORPUSCULAR VOLUME 98.1 fL (81-97); MEAN PLATELET VOLUME 7.8 fL (7.4-10.4); PLATELET COUNT 131 x10^3/uL (130-400); RED BLOOD COUNT 4.27 x10^6/uL (4.38-5.82); RED CELL DISTRIBUTION WIDTH 16.3 % (9.4-14.8)
[2019-01-01 12:52] LABS: BASOPHILS # (AUTO) 0.04 x10^3/uL (0-0.1); BASOPHILS % (AUTO) 1 % (0-1); EOSINOPHILS # (AUTO) 0.09 x10^3/uL (0-0.4); EOSINOPHILS % (AUTO) 2 % (1-7); LYMPHOCYTES % (AUTO) 61 % (22-44); MD SCAN; MONOCYTES # (AUTO) 0.48 x10^3/uL (0.2-0.8); MONOCYTES % (AUTO) 10 % (2-9); NEUTROPHILS # (AUTO) 1.39 x10^3/uL (1.8-6.8); NEUTROPHILS % (AUTO) 27 % (42-75)
[2019-01-01 13:12] LABS: ALBUMIN 3.7 g/dL (3.4-5.0); ANION GAP 10 mmol/L (5-15); CALCIUM 8.6 mg/dL (8.5-10.1); CHLORIDE 102 mmol/L (98-107); CREATININE 0.76 mg/dL (0.7-1.3)
[2019-01-01 13:16] LABS: TROPONIN I < 0.015 ng/mL (0.000-0.045)
--- NOTE | 2019-01-01 13:20 | NUR ---
PT RESTING IN GURNEY, AWITING LAB RESULTS. PT STATES "I DON'T WANT TO BE HERE", INFORMED PT HE DOES NOT HAVE TO STAY, HE CHECKED HIMSELF IN. PT UNDERSTANDS. CALL LIGHT WITHN REACH, BED RAILS UP.
[2019-01-01 13:34] VITALS: BP 108/76
== END 2019-01-01 14:12 | disposition home or self-care (01) ==
LOC: ED 12:31
DX: R07.89 Other chest pain (principal); J15.9 Unspecified bacterial pneumonia; J44.9 Chronic obstructive pulmonary disease, unspecified; K21.9 Gastro-esophageal reflux disease without esophagitis
CPT/HCPCS: 36415; 71045; 80048; 82040; 84484; 85025; 99284

== ENCOUNTER 2019-01-09 07:54 | Emergency (ER) | payer MEDICAID ==
[~2019-01-09] VITALS: Ht 172.7 cm; Wt 68.9 kg
--- NOTE | 2019-01-09 08:15 | NUR ---
PT TO ROOM AT THIS TIME.
--- NOTE | 2019-01-09 08:26 | NUR ---
58 Y/O MALE PRESENTS TO ED WITH C/O "I HAVE PNA AND IT'S NOT GETTING ANY BETTER. THEY TOLD ME ABOUT A MONTH AGO I HAD IT. I DIDN'T TAKE THE ABX." PT PLACED ON CONT PULSE OX,NIBP. NO C/O N/V/D, TRAUMA, SYNCOPE, CP.
--- NOTE | 2019-01-09 08:47 | NUR ---
PT TO IMAGING
--- NOTE | 2019-01-09 08:51 | NUR ---
BEDSIDE REPORT TO ZOFIA OZUNA.
--- NOTE | 2019-01-09 09:01 | NUR ---
PT. IS RESTING AFTER GOING TO RADIOLOGY.
[2019-01-09 09:15] LABS: BASOPHILS # (AUTO) 0.03 x10^3/uL (0-0.1); BASOPHILS % (AUTO) 1 % (0-1); EOSINOPHILS # (AUTO) 0.47 x10^3/uL (0-0.4); EOSINOPHILS % (AUTO) 11 % (1-7); LYMPHOCYTES # (AUTO) 1.85 x10^3/uL (1-3.4); LYMPHOCYTES % (AUTO) 41 % (22-44); MD NO; MEAN CORPUSCULAR HEMOGLOBIN 33.1 pg (27.5-34.5); MEAN CORPUSCULAR HGB CONC 32.5 g/dL (33.2-36.2); MEAN CORPUSCULAR VOLUME 101.9 fL (81-97); MEAN PLATELET VOLUME 7.1 fL (7.4-10.4); MONOCYTES # (AUTO) 0.68 x10^3/uL (0.2-0.8); MONOCYTES % (AUTO) 15 % (2-9); NEUTROPHILS # (AUTO) 1.45 x10^3/uL (1.8-6.8); NEUTROPHILS % (AUTO) 32 % (42-75); PLATELET COUNT 139 x10^3/uL (130-400); RED BLOOD COUNT 4.21 x10^6/uL (4.38-5.82); RED CELL DISTRIBUTION WIDTH 16.7 % (9.4-14.8)
[2019-01-09 09:30] LABS: ALBUMIN 3.6 g/dL (3.4-5.0); ANION GAP 7 mmol/L (5-15); CHLORIDE 105 mmol/L (98-107); CREATININE 0.69 mg/dL (0.7-1.3)
[2019-01-09] MEDS ORDERED: CEFTRIAXONE PMX 1GM/50ML 50 ML IVPB ONE (09:30)
[2019-01-09] MEDS ORDERED: AZITHROMYCIN 500 MG in SODIUM CHLORIDE 0.9% 250 ML IV ONE (09:30)
[2019-01-09 09:34] LABS: TROPONIN I < 0.015 ng/mL (0.000-0.045)
[2019-01-09] MEDS ORDERED: CEFTRIAXONE PMX 1GM/50ML 50 ML ONE (10:16)
--- NOTE | 2019-01-09 10:27 | NUR ---
PT. WAS GIVEN CEREAL AND MILK, CRACKERS AND PEANUT BUTTER. VSS. IV ABX ARE INFUSING. PT. VOIDED 800CC CLEAR, YELLOW URINE. SIDERAILS REMAIN UP X 2 WITH THE CALL LIGHT IN PLACE. HOB IS ELEVATED GREATER THAN 30 DEGREES.
--- NOTE | 2019-01-09 10:37 | NUR ---
Genevieve kirby in ED - 01/09/19 at 1039 by LENA PT. WAS GIVEN DISCHARGE INSTRUCTIONS, RESOURCES AND A PRESCRIPTION. PT. VERBALIZED UNDERSTANDING AND WILLINGNESS TO COMPLY. PT. WAS AMBULATORY TO DISCHARGE.
--- NOTE | 2019-01-09 12:56 | NUR ---
PT. WAS GIVEN DISCHARGE INSTRUCTIONS AND SCRIPTS WITH UNDERSTANDING VERBALIZED ALONG WITH WILLINGNESS TO COMPLY. PT.'S IV WAS DCD', CATH TIP INTACT PRESSURE HELD WITH HEMOSTASIS ACHIEVED. PT. WAS AMBULATORY TO THE DISCHARGE DESK.
[2019-01-09 12:58] VITALS: BP 104/70
== END 2019-01-09 13:02 | disposition home or self-care (01) ==
LOC: ED 08:52
DX: J15.9 Unspecified bacterial pneumonia (principal); F10.220 Alcohol dependence with intoxication, uncomplicated; J44.9 Chronic obstructive pulmonary disease, unspecified; K21.9 Gastro-esophageal reflux disease without esophagitis; Z86.19 Personal history of other infectious and parasitic diseases
CPT/HCPCS: 36415; 71046; 80048; 80307; 82040; 84484; 85025; 87040; 93005; 96365; 96367; 99284; J0456; J0696; J7050

== ENCOUNTER 2019-01-10 14:05 | Emergency (ER) | payer MEDICAID ==
[~2019-01-10] VITALS: Ht 165.1 cm; Wt 59.0 kg
[2019-01-10 14:29] VITALS: BP 107/60
== END 2019-01-10 15:29 | disposition home or self-care (01) ==
LOC: ED 15:25
DX: B86 Scabies (principal); F17.200 Nicotine dependence, unspecified, uncomplicated; J44.9 Chronic obstructive pulmonary disease, unspecified; K21.9 Gastro-esophageal reflux disease without esophagitis
CPT/HCPCS: 99283

== ENCOUNTER 2019-01-16 18:48 | Emergency (ER) | payer MEDICAID ==
[~2019-01-16] VITALS: Ht 170.2 cm; Wt 59.0 kg
[2019-01-16 18:59] VITALS: BP 102/70
[2019-01-16] MEDS ORDERED: DIPHENHYDRAMINE 25 MG CAPSULE PO ONE (19:30)
[2019-01-16] MEDS ORDERED: FAMOTIDINE 20 MG TABLET PO ONE (19:30)
[2019-01-16] MEDS ORDERED: DIPHENHYDRAMINE 25 MG CAPSULE ONE (19:30)
[2019-01-16] MEDS ORDERED: FAMOTIDINE 20 MG TABLET ONE (19:30)
--- NOTE | 2019-01-16 19:53 | NUR ---
CAB VOUCHER FOR SAFE DISCHARGE
== END 2019-01-16 19:55 | disposition home or self-care (01) ==
LOC: ED 19:50
DX: B86 Scabies (principal)
CPT/HCPCS: 99283; Q0163

== ENCOUNTER 2019-01-17 08:05 | Inpatient (IN) | payer MEDICAID ==
[~2019-01-17] VITALS: Ht 172.7 cm; Wt 71.6 kg
--- NOTE | 2019-01-17 08:20 | NUR ---
pt c/o feeling sick but not able to articulate exact symptoms. pt states he has feels like he has a fever and a cold for months. pt has odor of achohol and states he drinks everyday and was drinking beer before he came into the ED.
--- NOTE | 2019-01-17 08:45 | NUR ---
pt has low O2 sats in the 70s. O2 via nasal cannula applied. O2 improved to the high 90s.
[2019-01-17] MEDS ORDERED: FOLIC ACID 1 MG TABLET PO ONE (09:00)
[2019-01-17] MEDS ORDERED: THIAMINE 100MG TABLET PO ONE (09:00)
--- NOTE | 2019-01-17 09:11 | NUR ---
meds ordered by ED MD not in the med [facility]. RX request sent to Pharmacy.
[2019-01-17 09:29] LABS: ALANINE AMINOTRANSFERASE 48 U/L (12-78); ALBUMIN 3.9 g/dL (3.4-5.0); ANION GAP 7 mmol/L (5-15); CALCIUM 8.5 mg/dL (8.5-10.1); CHLORIDE 103 mmol/L (98-107); CREATININE 0.88 mg/dL (0.7-1.3)
[2019-01-17 09:33] LABS: ALKALINE PHOSPHATASE 120 U/L (45-117); BILIRUBIN,TOTAL 0.4 mg/dL (0.2-1.0); TOTAL PROTEIN 8.4 g/dL (6.4-8.2)
[2019-01-17] MEDS ORDERED: THIAMINE 100MG TABLET ONE (09:40)
[2019-01-17 09:55] LABS: MEAN CORPUSCULAR HEMOGLOBIN 32.6 pg (27.5-34.5); MEAN CORPUSCULAR HGB CONC 32.2 g/dL (33.2-36.2); MEAN CORPUSCULAR VOLUME 101.5 fL (81-97); MEAN PLATELET VOLUME 7.3 fL (7.4-10.4); PLATELET COUNT 155 x10^3/uL (130-400); RED BLOOD COUNT 4.27 x10^6/uL (4.38-5.82); RED CELL DISTRIBUTION WIDTH 16.6 % (9.4-14.8)
[2019-01-17 09:56] LABS: MD YES
[2019-01-17 09:58] LABS: BASOS#(MANUAL) 0.04 x10^3/uL (0-0.1); BASOS% (MANUAL) 1 % (0-1); EOS#(MANUAL) 0.34 x10^3/uL (0.0-0.4); EOS% (MANUAL) 8 % (1-7); LYMPH#(MANUAL) 1.68 x10^3/uL (1-3.4); LYMPHS% (MANUAL) 40 % (22-44); MONOS#(MANUAL) 0.46 x10^3/uL (0.3-2.7); MONOS% (MANUAL) 11 % (2-9); SEG#(MANUAL) 1.68 x10^3/uL (1.8-6.8); SEGS% (MANUAL) 40 % (42-75)
[2019-01-17 09:59] LABS: <PLATELET ESTIMATE> ADEQUATE; <PLT MORPHOLOGY> NORMAL PLT MORPH; ANISOCYTOSIS 1+
[2019-01-17] MEDS ORDERED: PIPERACILLIN/TAZO/PMX 3.375GM 50 ML ONE (10:28)
[2019-01-17] MEDS ORDERED: PIPERACILLIN/TAZO/PMX 3.375GM 50 ML IV ONE (10:30)
--- NOTE | 2019-01-17 11:03 | NUR ---
pt medicated per emar. pt to be admitted. pt resting on gurney. no acute distress noted. blanket provided.
[2019-01-17] MEDS ORDERED: SODIUM CHLORIDE FLUSH 10ML SYR IVF PRN (11:30)
--- NOTE | 2019-01-17 11:54 | NUR ---
Pt resting in bed with eyes closed, easily arousable to his name being called, LEANDRO.
--- NOTE | 2019-01-17 12:05 | NUR ---
[facility] at bedside to evaluate pt for admission.
[2019-01-17] MEDS: NS + 20MEQ KCL 1,000 ML IV SCH (12:10)
[2019-01-17] MEDS ORDERED: VANCOMYCIN PER PHARMACY MC PRN (12:30)
[2019-01-17] MEDS ORDERED: ONDANSETRON ODT 4 MG PO PRN (12:30)
[2019-01-17] MEDS ORDERED: CHLORDIAZEPOXIDE 25 MG CAPSULE PO PRN (12:30)
[2019-01-17] MEDS ORDERED: LABETALOL 5MG/ML, 20ML IVPush PRN (12:30)
[2019-01-17] MEDS ORDERED: BISACODYL 10 MG SUPP PR PRN (12:30)
[2019-01-17] MEDS ORDERED: CEFEPIME 2 GM in DEXTROSE 5% 100 ML IV SCH (12:30)
[2019-01-17] MEDS ORDERED: ONDANSETRON 2MG/ML, 2ML IVPush PRN (12:30)
[2019-01-17] MEDS ORDERED: ACETAMINOPHEN 325 MG TABLET PO PRN (12:30)
[2019-01-17] MEDS ORDERED: DOCUSATE 100 MG CAPSULE PO PRN (12:30)
[2019-01-17] MEDS ORDERED: POLYETHYLENE GLYCOL 17 GM PACKET PO PRN (12:30)
[2019-01-17] MEDS ORDERED: ENALAPRILAT 1.25 MG/ML, 2ML IVPush PRN (12:30)
--- NOTE | 2019-01-17 12:59 | NUR ---
pt sleeping on gurney. no acute distress noted.
--- NOTE | 2019-01-17 13:30 | NUR ---
report given to maureen whyte on tele 2
[2019-01-17] MEDS ORDERED: ALBUTEROL/IPRATROPIUM 2.5MG/0.5MG, 3 ML ONE (13:34)
[2019-01-17] MEDS ORDERED: PHARMACOKINETIC CONSULTATION MC ONE (14:30)
[2019-01-17] MEDS ORDERED: PHARMACOKINETIC MONITORING MC PRN (14:30)
[2019-01-17] MEDS: ENOXAPARIN 40 MG/0.4 ML SQ SCH (14:36)
[2019-01-17] MEDS: GUAIFENESIN/DM 200-20MG, 10ML UDC PO SCH ×2 (14:36→20:02)
[2019-01-17] MEDS: CEFEPIME 2 GM in DEXTROSE 5% 100 ML IV SCH ×2 (14:36→23:59)
[2019-01-17 14:52] VITALS: BP 117/65
[2019-01-17] MEDS: VANCOMYCIN 1,300 MG in SODIUM CHLORIDE 0.9% 250 ML IV SCH (16:15)
[2019-01-17] MEDS: CHLORDIAZEPOXIDE 25 MG CAPSULE PO PRN (17:41)
[2019-01-17] MEDS: THIAMINE 200 MG, MVI ADULT 10 ML, FOLIC ACID 1 MG in D5%-0.9% NACL 1,000 ML IV SCH (18:01)
[2019-01-17 20:00] VITALS: BP 119/67
[2019-01-17] MEDS: FAMOTIDINE 20 MG TABLET PO SCH (20:02)
[2019-01-18 01:41] VITALS: BP 139/75
[2019-01-18] MEDS: CHLORDIAZEPOXIDE 25 MG CAPSULE PO PRN ×5 (01:49→20:17)
[2019-01-18] MEDS: GUAIFENESIN/DM 200-20MG, 10ML UDC PO SCH ×4 (01:50→20:17)
[2019-01-18] MEDS: VANCOMYCIN 1,300 MG in SODIUM CHLORIDE 0.9% 250 ML IV SCH ×2 (04:43→16:05)
[2019-01-18 05:36] LABS: ANION GAP 5 mmol/L (5-15); CALCIUM 8.4 mg/dL (8.5-10.1); CHLORIDE 101 mmol/L (98-107)
[2019-01-18 05:37] LABS: CREATININE 0.79 mg/dL (0.7-1.3)
[2019-01-18 05:54] LABS: MEAN CORPUSCULAR HEMOGLOBIN 34.2 pg (27.5-34.5); MEAN CORPUSCULAR HGB CONC 33.7 g/dL (33.2-36.2); MEAN CORPUSCULAR VOLUME 101.3 fL (81-97); MEAN PLATELET VOLUME 7.8 fL (7.4-10.4); PLATELET COUNT 128 x10^3/uL (130-400); RED BLOOD COUNT 3.82 x10^6/uL (4.38-5.82); RED CELL DISTRIBUTION WIDTH 16.3 % (9.4-14.8)
[2019-01-18 06:10] LABS: MD YES
[2019-01-18 06:13] LABS: BASOS#(MANUAL) 0.03 x10^3/uL (0-0.1); BASOS% (MANUAL) 1 % (0-1); LYMPH#(MANUAL) 1.25 x10^3/uL (1-3.4); LYMPHS% (MANUAL) 38 % (22-44); MONOS#(MANUAL) 0.23 x10^3/uL (0.3-2.7); MONOS% (MANUAL) 7 % (2-9); SEG#(MANUAL) 1.78 x10^3/uL (1.8-6.8); SEGS% (MANUAL) 54 % (42-75)
[2019-01-18 06:15] LABS: <PLATELET ESTIMATE> ADEQUATE; <PLT MORPHOLOGY> NORMAL PLT MORPH; ANISOCYTOSIS 1+
[2019-01-18] MEDS: ALBUTEROL/IPRATROPIUM 2.5MG/0.5MG, 3 ML NPPB SCH ×4 (07:10→19:21)
[2019-01-18] MEDS: FAMOTIDINE 20 MG TABLET PO SCH ×2 (07:49→20:17)
[2019-01-18] MEDS: NS + 20MEQ KCL 1,000 ML IV SCH (07:49)
[2019-01-18] MEDS: CEFEPIME 2 GM in DEXTROSE 5% 100 ML IV SCH ×3 (07:49→23:35)
[2019-01-18 08:50] VITALS: BP 138/69
[2019-01-18 13:56] VITALS: BP 127/63
[2019-01-18] MEDS: ENOXAPARIN 40 MG/0.4 ML SQ SCH (14:25)
[2019-01-18] MEDS: THIAMINE 200 MG, MVI ADULT 10 ML, FOLIC ACID 1 MG in D5%-0.9% NACL 1,000 ML IV SCH (17:50)
[2019-01-18 20:45] VITALS: BP 119/60
[2019-01-19 02:04] VITALS: BP 135/77
[2019-01-19] MEDS: GUAIFENESIN/DM 200-20MG, 10ML UDC PO SCH ×4 (02:30→20:51)
[2019-01-19] MEDS: VANCOMYCIN 1,300 MG in SODIUM CHLORIDE 0.9% 250 ML IV SCH (04:25)
[2019-01-19 06:43] VITALS: BP 128/79
[2019-01-19] MEDS: ALBUTEROL/IPRATROPIUM 2.5MG/0.5MG, 3 ML NPPB SCH ×4 (06:47→20:15)
[2019-01-19] MEDS: CHLORDIAZEPOXIDE 10 MG CAPSULE PO PRN ×3 (08:39→20:51)
[2019-01-19] MEDS: FAMOTIDINE 20 MG TABLET PO SCH ×2 (08:39→20:51)
[2019-01-19] MEDS: CEFEPIME 2 GM in DEXTROSE 5% 100 ML IV SCH ×3 (08:39→23:15)
[2019-01-19] MEDS: NS + 20MEQ KCL 1,000 ML IV SCH (12:29)
[2019-01-19 13:51] VITALS: BP 124/65
[2019-01-19] MEDS: ENOXAPARIN 40 MG/0.4 ML SQ SCH (16:37)
[2019-01-19 20:56] VITALS: BP 122/63
[2019-01-19] MEDS: CHLORDIAZEPOXIDE 25 MG CAPSULE PO PRN (22:59)
[2019-01-20 02:38] VITALS: BP 128/71
[2019-01-20] MEDS: NS + 20MEQ KCL 1,000 ML IV SCH ×2 (03:58→18:23)
[2019-01-20] MEDS: GUAIFENESIN/DM 200-20MG, 10ML UDC PO SCH ×4 (03:59→22:09)
[2019-01-20 06:12] VITALS: BP 122/70
[2019-01-20] MEDS: CEFEPIME 2 GM in DEXTROSE 5% 100 ML IV SCH ×3 (06:12→22:08)
[2019-01-20] MEDS: ALBUTEROL/IPRATROPIUM 2.5MG/0.5MG, 3 ML NPPB SCH (07:00)
[2019-01-20] MEDS ORDERED: ALBUTEROL/IPRATROPIUM 2.5MG/0.5MG, 3 ML NPPB PRN (08:30)
[2019-01-20] MEDS: CHLORDIAZEPOXIDE 25 MG CAPSULE PO PRN ×2 (08:42→15:34)
[2019-01-20] MEDS: FAMOTIDINE 20 MG TABLET PO SCH ×2 (08:42→22:08)
[2019-01-20] MEDS: CHLORDIAZEPOXIDE 10 MG CAPSULE PO PRN (11:46)
[2019-01-20 12:30] VITALS: BP 116/69
[2019-01-20] MEDS: ENOXAPARIN 40 MG/0.4 ML SQ SCH (15:34)
[2019-01-20 19:58] VITALS: BP 132/64
[2019-01-21 02:38] VITALS: BP 151/93
[2019-01-21] MEDS: GUAIFENESIN/DM 200-20MG, 10ML UDC PO SCH ×4 (02:49→20:44)
[2019-01-21] MEDS: NS + 20MEQ KCL 1,000 ML IV SCH ×2 (04:06→15:21)
[2019-01-21] MEDS: CEFEPIME 2 GM in DEXTROSE 5% 100 ML IV SCH (05:05)
[2019-01-21 07:34] VITALS: BP 132/76
[2019-01-21 08:01] LABS: ALANINE AMINOTRANSFERASE 31 U/L (12-78); ALBUMIN 3.3 g/dL (3.4-5.0); ANION GAP 4 mmol/L (5-15); CALCIUM 8.9 mg/dL (8.5-10.1); CHLORIDE 104 mmol/L (98-107)
[2019-01-21 08:04] LABS: ALKALINE PHOSPHATASE 71 U/L (45-117); BILIRUBIN,TOTAL 0.6 mg/dL (0.2-1.0); CREATININE 0.76 mg/dL (0.7-1.3); TOTAL PROTEIN 7.1 g/dL (6.4-8.2)
[2019-01-21 08:06] LABS: MEAN CORPUSCULAR HEMOGLOBIN 33.5 pg (27.5-34.5); MEAN CORPUSCULAR HGB CONC 32.6 g/dL (33.2-36.2); MEAN CORPUSCULAR VOLUME 102.7 fL (81-97); MEAN PLATELET VOLUME 8.5 fL (7.4-10.4); PLATELET COUNT 117 x10^3/uL (130-400); RED BLOOD COUNT 3.86 x10^6/uL (4.38-5.82); RED CELL DISTRIBUTION WIDTH 15.9 % (9.4-14.8)
[2019-01-21 08:30] LABS: MD YES
[2019-01-21 08:36] LABS: EOS#(MANUAL) 0.11 x10^3/uL (0.0-0.4); EOS% (MANUAL) 2 % (1-7); LYMPH#(MANUAL) 1.94 x10^3/uL (1-3.4); LYMPHS% (MANUAL) 36 % (22-44); MONOS% (MANUAL) 13 % (2-9); SEG#(MANUAL) 2.65 x10^3/uL (1.8-6.8); SEGS% (MANUAL) 49 % (42-75)
[2019-01-21] MEDS: FAMOTIDINE 20 MG TABLET PO SCH ×2 (08:36→20:44)
[2019-01-21 08:37] LABS: <PLATELET ESTIMATE> DECREASED; <PLT MORPHOLOGY> NORMAL PLT MORPH; ANISOCYTOSIS 1+
[2019-01-21 13:31] VITALS: BP 110/76
[2019-01-21] MEDS ORDERED: CEFEPIME 2 GM in DEXTROSE 5% 100 ML IV SCH (15:00)
[2019-01-21] MEDS: ENOXAPARIN 40 MG/0.4 ML SQ SCH (15:20)
[2019-01-21] MEDS: LEVOFLOXACIN 750 MG TABLET PO SCH (17:27)
[2019-01-21 19:30] VITALS: BP 129/70
[2019-01-22 00:37] VITALS: BP 116/61
[2019-01-22] MEDS: NS + 20MEQ KCL 1,000 ML IV SCH (01:54)
[2019-01-22] MEDS: GUAIFENESIN/DM 200-20MG, 10ML UDC PO SCH ×2 (03:00→08:46)
[2019-01-22 05:15] LABS: CHLORIDE 107 mmol/L (98-107)
[2019-01-22 05:20] LABS: MEAN CORPUSCULAR HEMOGLOBIN 33.5 pg (27.5-34.5); MEAN CORPUSCULAR HGB CONC 32.4 g/dL (33.2-36.2); MEAN CORPUSCULAR VOLUME 103.4 fL (81-97); PLATELET COUNT 141 x10^3/uL (130-400); RED BLOOD COUNT 3.88 x10^6/uL (4.38-5.82); RED CELL DISTRIBUTION WIDTH 15.9 % (9.4-14.8)
[2019-01-22 05:24] LABS: ANION GAP 5 mmol/L (5-15); CALCIUM 9.2 mg/dL (8.5-10.1); CREATININE 0.67 mg/dL (0.7-1.3)
[2019-01-22 05:45] LABS: MD YES
[2019-01-22 05:49] LABS: ANISOCYTOSIS 1+; BASOS#(MANUAL) 0.05 x10^3/uL (0-0.1); BASOS% (MANUAL) 1 % (0-1); LYMPH#(MANUAL) 2.38 x10^3/uL (1-3.4); LYMPHS% (MANUAL) 44 % (22-44); MONOS#(MANUAL) 0.65 x10^3/uL (0.3-2.7); MONOS% (MANUAL) 12 % (2-9); SEG#(MANUAL) 2.32 x10^3/uL (1.8-6.8); SEGS% (MANUAL) 43 % (42-75)
[2019-01-22 05:50] LABS: <PLATELET ESTIMATE> ADEQUATE; <PLT MORPHOLOGY> NORMAL PLT MORPH
[2019-01-22 07:53] VITALS: BP 136/78
[2019-01-22] MEDS ORDERED: LEVO750T26 PO ×2 (07:57→08:14)
[2019-01-22] MEDS ORDERED: PRED20TA PO ×2 (07:57→08:14)
[2019-01-22] MEDS ORDERED: ALBU90AE INH (08:14)
[2019-01-22] MEDS: LEVOFLOXACIN 750 MG TABLET PO SCH (08:45)
[2019-01-22] MEDS: FAMOTIDINE 20 MG TABLET PO SCH (08:45)
== END 2019-01-22 10:31 | disposition home or self-care (01) | DRG 190 ==
LOC: ED 08:53 → EDIP 12:15 → 4EST 14:02 → DCLOUNGE 01-22 10:25
PROVIDERS: ADMIT Hospitalist; ATTEND Hospitalist
DX: J44.0 Chronic obstructive pulmonary disease with (acute) lower respiratory infection (principal); J15.9 Unspecified bacterial pneumonia; F10.239 Alcohol dependence with withdrawal, unspecified; F41.9 Anxiety disorder, unspecified; J44.1 Chronic obstructive pulmonary disease with (acute) exacerbation; F17.210 Nicotine dependence, cigarettes, uncomplicated; F10.220 Alcohol dependence with intoxication, uncomplicated; I10 Essential (primary) hypertension; K21.9 Gastro-esophageal reflux disease without esophagitis; Z66 Do not resuscitate; R09.02 Hypoxemia; Y90.8 Blood alcohol level of 240 mg/100 ml or more; Z59.0 Homelessness; Z86.72 Personal history of thrombophlebitis; Z87.01 Personal history of pneumonia (recurrent)
CPT/HCPCS: 36415; 84145; 99285; J7042; J7620; 71046; 80048; 80053; 80202; 80307; 83605; 83735; 84100; 85025; 87040; 93005; 94640; 96365; G0378; J1650; J2543; J3370; J3411; J3480; J7050; J7512

== ENCOUNTER 2019-01-27 13:53 | Emergency (ER) | payer MEDICAID ==
[~2019-01-27] VITALS: Ht 172.7 cm; Wt 70.1 kg
[~2019-01-27 13:53] MED LIST changes: +ALBU90AE INH; +LEVO750T26 PO
[2019-01-27 14:04] VITALS: BP 111/66
[2019-01-27] MEDS ORDERED: RABIES IMMUNE GLOBULIN/PF 150 UNITS/ML, 2ML IM ONE (14:30)
[2019-01-27] MEDS ORDERED: RABIES VACCINE /PF 2.5 UNITS IM-VACC ONE (14:30)
--- NOTE | 2019-01-27 14:34 | NUR ---
SPOKE TO PHARMACY IN R/T TO PENDING MED. PHARMACIST TO ADJUST DOSE AND HAVE PHARMACIST TECH WALK MED OVER SHORTLY
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
--- NOTE | 2019-01-27 15:30 | NUR ---
WOUNDS CLEANSED W/ WOUND CLEANSER AND DRESSED W/ BACITRACIN DRESSING ANIMAL BITE REPORT OBTAINED/PROVIDER FILLED OUT HIS PORTION.PATIENT ATTEMPTING TO WORK ON HIS DEMOGRAPHIC PORTION
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
== END 2019-01-27 16:06 | disposition home or self-care (01) ==
LOC: ED 16:00
DX: S50.871A Other superficial bite of right forearm, initial encounter (principal); K21.9 Gastro-esophageal reflux disease without esophagitis; J44.9 Chronic obstructive pulmonary disease, unspecified; F17.200 Nicotine dependence, unspecified, uncomplicated; Z86.19 Personal history of other infectious and parasitic diseases; W54.0XXA Bitten by dog, initial encounter; Y93.01 Activity, walking, marching and hiking; Y92.480 Sidewalk as the place of occurrence of the external cause; Y99.8 Other external cause status
CPT/HCPCS: 90375; 90675; 99283

== ENCOUNTER 2019-11-27 12:57 | Emergency (ER) | payer MEDICAID ==
[~2019-11-27] VITALS: Ht 172.7 cm; Wt 69.4 kg
[~2019-11-27 12:57] MED LIST changes: +AZIT500T10 PO; -AZIT500T5 PO; -DOXY100T10 PO; +DOXY100T23 PO
[2019-11-27 12:58] VITALS: BP 128/85
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
[2019-11-27] MEDS ORDERED: HYDROcodone/APAP 5/325 TABLET ONE (14:16)
[2019-11-27] MEDS ORDERED: HYDROcodone/APAP 10/325 MG TABLET ONE (14:18)
[2019-11-27] MEDS ORDERED: HYDROcodone/APAP 10/325 MG TABLET PO ONE (14:30)
== END 2019-11-27 15:14 | disposition home or self-care (01) ==
LOC: ED 13:46
DX: S82.64XA Nondisplaced fracture of lateral malleolus of right fibula, initial encounter for closed fracture (principal); I45.10 Unspecified right bundle-branch block; I44.5 Left posterior fascicular block; I21.9 Acute myocardial infarction, unspecified; R00.0 Tachycardia, unspecified; J44.9 Chronic obstructive pulmonary disease, unspecified; K21.9 Gastro-esophageal reflux disease without esophagitis; F17.200 Nicotine dependence, unspecified, uncomplicated; Z90.49 Acquired absence of other specified parts of digestive tract; X58.XXXA Exposure to other specified factors, initial encounter; Y93.89 Activity, other specified; Y92.488 Other paved roadways as the place of occurrence of the external cause; Y99.8 Other external cause status
CPT/HCPCS: 93005; 99284

== ENCOUNTER 2019-11-28 04:31 | Emergency (ER) | payer MEDICAID ==
[~2019-11-28] VITALS: Ht 172.7 cm; Wt 74.0 kg
[2019-11-28 04:39] VITALS: BP 120/79
--- NOTE | 2019-11-28 05:27 | NUR ---
NO ANSWER WHEN CALLED FOR ROOM
--- NOTE | 2019-11-28 05:29 | NUR ---
EARLIER PT APPARENTLY AMBULATED OUT DOOR WITH STEADY GAIT STATING TO STAFF IN LOBBY THAT HE WAS GOING TO [facility]
== END 2019-11-28 06:19 | disposition left against medical advice (07) ==
LOC: ED 05:23
DX: M79.671 Pain in right foot (principal); Z53.21 Procedure and treatment not carried out due to patient leaving prior to being seen by health care provider

== ENCOUNTER 2019-12-19 11:51 | Emergency (ER) | payer MEDICAID ==
[~2019-12-19] VITALS: Ht 172.7 cm; Wt 75.0 kg
[2019-12-19 11:54] VITALS: BP 139/94
--- NOTE | 2019-12-19 13:02 | NUR ---
Report given to Rin ARMIJO.
--- NOTE | 2019-12-19 13:07 | NUR ---
AFTER RECEIVING REPORT ASSUMED CARE
--- NOTE | 2019-12-19 14:29 | NUR ---
TECH AT BEDSIDE APPLYING SPLINT
--- NOTE | 2019-12-19 14:55 | NUR ---
GOOD CMS DISTAL TO SPLINT. PT DECLINES CRUTCHES. TO DISCHARGE WINDOW VIA W/C
== END 2019-12-19 14:57 | disposition home or self-care (01) ==
LOC: ED 13:09
DX: S82.64XA Nondisplaced fracture of lateral malleolus of right fibula, initial encounter for closed fracture (principal); J44.9 Chronic obstructive pulmonary disease, unspecified; K21.9 Gastro-esophageal reflux disease without esophagitis; F17.290 Nicotine dependence, other tobacco product, uncomplicated; Z90.49 Acquired absence of other specified parts of digestive tract; X50.1XXA Overexertion from prolonged static or awkward postures, initial encounter; Y93.89 Activity, other specified; Y92.488 Other paved roadways as the place of occurrence of the external cause; Y99.8 Other external cause status
CPT/HCPCS: 29505; 29515; 99283

== ENCOUNTER 2020-01-06 17:06 | Emergency (ER) | payer MEDICAID ==
[~2020-01-06] VITALS: Ht 172.7 cm; Wt 72.0 kg
[2020-01-06 17:09] VITALS: BP 139/90
[2020-01-06] MEDS ORDERED: HYDROcodone/APAP 5/325 TABLET PO STA (17:23)
== END 2020-01-06 17:56 | disposition left against medical advice (07) ==
LOC: ED 17:50
DX: M79.641 Pain in right hand (principal); M79.89 Other specified soft tissue disorders; K21.9 Gastro-esophageal reflux disease without esophagitis; J44.9 Chronic obstructive pulmonary disease, unspecified; Z72.89 Other problems related to lifestyle
CPT/HCPCS: 99281; 99283

== ENCOUNTER 2020-01-07 14:57 | Emergency (ER) | payer MEDICAID ==
[~2020-01-07] VITALS: Ht 172.7 cm; Wt 67.8 kg
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
--- NOTE | 2020-01-07 15:17 | NUR ---
PLACED R HAND IN WARM WATER AND BETADINE TO SOAK AND CLEANSE.
[2020-01-07] MEDS ORDERED: NEOSPORIN OINT. PKT 1 PACKET ONE (16:53)
[2020-01-07 17:59] VITALS: BP 132/76
== END 2020-01-07 18:01 | disposition home or self-care (01) ==
LOC: ED 15:30
DX: S62.524A Nondisplaced fracture of distal phalanx of right thumb, initial encounter for closed fracture (principal); S61.101A Unspecified open wound of right thumb with damage to nail, initial encounter; F10.20 Alcohol dependence, uncomplicated; J44.9 Chronic obstructive pulmonary disease, unspecified; K21.9 Gastro-esophageal reflux disease without esophagitis; F17.200 Nicotine dependence, unspecified, uncomplicated; Z90.89 Acquired absence of other organs; Z72.9 Problem related to lifestyle, unspecified; X58.XXXA Exposure to other specified factors, initial encounter; Y93.89 Activity, other specified; Y92.89 Other specified places as the place of occurrence of the external cause; Y99.8 Other external cause status; Y90.0 Blood alcohol level of less than 20 mg/100 ml
CPT/HCPCS: 29125; 99283

== ENCOUNTER 2020-10-09 00:03 | Emergency (ER) | payer MEDICAID ==
[~2020-10-09] VITALS: Ht 167.6 cm; Wt 64.0 kg
[~2020-10-09 00:03] MED LIST changes: -FOLI-17 PO; +FOLI1TAB32 PO; +MULT-449 PO; -MULT1TAB60 PO
--- NOTE | 2020-10-09 00:24 | NUR ---
LUIS FOR 05/04 CP. PT STATES HE HAS HAD CHEST PAIN FOR ONE WEEK AND DOESNT WANT TO BE HERE BUT HIS GF CALLED. HE HAD NEW ONSET SOB TODAY AND HAS PRODUCTIVE COUGH WITH GREEN/WHITE MUCOUS. PT DRINKS 2 QUARTS BEER DAILY. PT REPORTS NOT TAKING MEDICATIONS FOR ANYTHING.
--- NOTE | 2020-10-09 00:35 | NUR ---
PT NOTED TO BE 81% ON RA, 94% ON 3L NC
[2020-10-09 01:01] LABS: ALANINE AMINOTRANSFERASE 40 U/L (12-78); ALBUMIN 3.4 g/dL (3.4-5.0); ANION GAP 7 mmol/L (5-15); CALCIUM 8.2 mg/dL (8.5-10.1); CHLORIDE 102 mmol/L (98-107); CREATININE 0.57 mg/dL (0.7-1.3)
[2020-10-09 01:05] LABS: ALKALINE PHOSPHATASE 121 U/L (45-117); BILIRUBIN,TOTAL 0.6 mg/dL (0.2-1.0); TOTAL PROTEIN 8.2 g/dL (6.4-8.2); TROPONIN I < 0.015 ng/mL (0.000-0.045)
[2020-10-09 01:07] LABS: BASOPHILS % (AUTO) 1 % (0-1); EOSINOPHILS % (AUTO) 0 % (1-7); LYMPHOCYTES % (AUTO) 38 % (22-44); MEAN CORPUSCULAR HEMOGLOBIN 36.2 pg (27.5-34.5); MEAN CORPUSCULAR HGB CONC 35.8 g/dL (33.2-36.2); MEAN PLATELET VOLUME 8.3 fL (7.4-10.4); MONOCYTES % (AUTO) 11 % (2-9); NEUTROPHILS % (AUTO) 51 % (42-75); PLATELET COUNT 83 x10^3/uL (130-400); RED BLOOD COUNT 4.05 x10^6/uL (4.38-5.82); RED CELL DISTRIBUTION WIDTH 14.3 % (9.4-14.8)
[2020-10-09 01:28] LABS: MD SCAN
[2020-10-09 01:30] VITALS: BP 113/78
--- NOTE | 2020-10-09 02:10 | NUR ---
PT APPROACHED NURSES STATION FULLY DRESSED POLITELY STATING HE WANTS TO GO HOME. PT EDUCATED ON RISKS OF LEAVING, INCLUDING RISK OF DYING. PT STILL WANTING TO GO HOME. PT ALSO POLITELY DECLINING TAXI VOUCHER SINCE HE CANT REMEMBER HIS ADDRESS AND STATES HE IS FINE WALKING HOME. PT WALKED OUT TO LOBBY. ERP UPDATED
== END 2020-10-09 02:14 | disposition left against medical advice (07) ==
LOC: ED 01:17
DX: S22.31XA Fracture of one rib, right side, initial encounter for closed fracture (principal); R07.89 Other chest pain; I45.10 Unspecified right bundle-branch block; J44.9 Chronic obstructive pulmonary disease, unspecified; K21.9 Gastro-esophageal reflux disease without esophagitis; F17.200 Nicotine dependence, unspecified, uncomplicated; X58.XXXA Exposure to other specified factors, initial encounter; Y93.89 Activity, other specified; Y92.89 Other specified places as the place of occurrence of the external cause; Y99.8 Other external cause status
CPT/HCPCS: 36415; 71045; 80053; 80320; 84484; 85025; 93005; 99285; G0480

== ENCOUNTER 2020-11-22 19:49 | Emergency (ER) | payer MEDICAID ==
[~2020-11-22] VITALS: Ht 172.7 cm; Wt 73.0 kg
[2020-11-22 20:10] VITALS: BP 119/81
[2020-11-22] MEDS ORDERED: FAMOTIDINE 20 MG TABLET ONE (21:24)
[2020-11-22] MEDS ORDERED: DIPHENHYDRAMINE 25 MG CAPSULE ONE (21:24)
--- NOTE | 2020-11-22 21:28 | NUR ---
PT MEDICATED FOR ITCHINESS
[2020-11-22] MEDS ORDERED: FAMOTIDINE 20 MG TABLET PO ONE (21:30)
[2020-11-22] MEDS ORDERED: DIPHENHYDRAMINE 25 MG CAPSULE PO ONE (21:30)
== END 2020-11-22 21:44 | disposition home or self-care (01) ==
LOC: ED 21:40
DX: B86 Scabies (principal); J44.9 Chronic obstructive pulmonary disease, unspecified; K21.9 Gastro-esophageal reflux disease without esophagitis
CPT/HCPCS: 99283; Q0163

== ENCOUNTER 2020-11-30 22:27 | Emergency (ER) | payer MEDICAID ==
[~2020-11-30] VITALS: Ht 172.7 cm; Wt 70.0 kg
[~2020-11-30 22:27] MED LIST changes: +DOXY-246 PO; -DOXY100C15 PO
--- NOTE | 2020-12-01 | NUR ---
pt resting on gurney. resp even and unlabored. pt attached to spo2 monitor and bp monitor
--- NOTE | 2020-12-01 01:00 | NUR ---
pt resting on gurney. resp even and unlabored. pt attached to spo2 monitor and bp monitor
--- NOTE | 2020-12-01 02:00 | NUR ---
pt resting on gurney. resp even and unlabored. pt attached to spo2 monitor and bp monitor
--- NOTE | 2020-12-01 03:06 | NUR ---
attempted to ambulate pt. pt still unsteady on his feet. pt assisted back to [facility]. provided water and snacks.
[2020-12-01 03:07] VITALS: BP 106/72
--- NOTE | 2020-12-01 03:57 | NUR ---
Pt resting, side rails up will continue to monitor. o2 sat 97%4L.
--- NOTE | 2020-12-01 05:00 | NUR ---
pt resting on gurney. resp even and unlabored. pt attached to spo2 monitor and bp monitor
--- NOTE | 2020-12-01 05:58 | NUR ---
pt A+Ox4 and ambulatory to the discharge desk with a steady gait.
[2021-03-11] MEDS ORDERED: DOXY100C5 PO (13:35)
== END 2020-12-01 06:01 | disposition home or self-care (01) ==
LOC: ED 23:08
DX: S09.90XA Unspecified injury of head, initial encounter (principal); F10.129 Alcohol abuse with intoxication, unspecified; M54.5 Low back pain; J44.9 Chronic obstructive pulmonary disease, unspecified; K21.9 Gastro-esophageal reflux disease without esophagitis; Z90.89 Acquired absence of other organs; W18.39XA Other fall on same level, initial encounter; Y93.89 Activity, other specified; Y92.89 Other specified places as the place of occurrence of the external cause; Y99.8 Other external cause status; Y90.2 Blood alcohol level of 40-59 mg/100 ml
CPT/HCPCS: 70450; 72190; 99284

== ENCOUNTER 2020-12-11 17:44 | Emergency (ER) | payer MEDICAID ==
[~2020-12-11] VITALS: Ht 172.7 cm; Wt 65.6 kg
[~2020-12-11 17:44] MED LIST changes: -DOXY-246 PO; +DOXY100C15 PO
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
--- NOTE | 2020-12-11 18:24 | NUR ---
XRAY at bedside
--- NOTE | 2020-12-11 18:57 | NUR ---
RECIEVED REPORT FROM JOHN ARMIJO. UP FOR RECHECK FOR ERP.
--- NOTE | 2020-12-11 19:16 | NUR ---
PT. PROVIDED WITH MEAL TRAY. PT. TO BE D/C.
[2020-12-11 19:55] VITALS: BP 90/70
--- NOTE | 2020-12-11 19:57 | NUR ---
Patient given discharge instructions and they have confirmed that they understand the instructions. Patient ambulatory with steady gait.
== END 2020-12-11 19:59 | disposition home or self-care (01) ==
LOC: ED 18:10
DX: M70.22 Olecranon bursitis, left elbow (principal); K21.9 Gastro-esophageal reflux disease without esophagitis; Y93.89 Activity, other specified; J44.9 Chronic obstructive pulmonary disease, unspecified
CPT/HCPCS: 99283

== ENCOUNTER 2021-03-09 17:19 | Inpatient (IN) | payer MEDICAID ==
[~2021-03-09] VITALS: Ht 172.7 cm; Wt 67.8 kg
[~2021-03-09 17:19] MED LIST changes: +DOXY-246 PO; -DOXY100C15 PO
--- NOTE | 2021-03-09 17:29 | NUR ---
BIBA TO DETOX OFF OF ETOH. LAST DRINK PER PT WAS 6 HOURS AGO. WHEN EMS ARRIVED PT SPO2 ON ROOM AIR WAS 85 AND PT WAS HYPOTENSTIVE AT 86/50. PT ADMITS TO HAVING A COUGH. PT ATTACHED TO MONITORS. HYPOTENSIVE AT 87/54. OTHER VSS. NADN.
--- NOTE | 2021-03-09 18:04 | NUR ---
IV BOLUS RUNNING FOR HYPOTENTION.
--- NOTE | 2021-03-09 18:09 | NUR ---
DR. HAYS TO BEDSIDE FOR EVALUATION.
[2021-03-09] MEDS ORDERED: SODIUM CHLORIDE 0.9% 1,000 ML IV ONE (18:30)
[2021-03-09] MEDS ORDERED: ONDANSETRON 2MG/ML, 2ML IVPush ONE (18:30)
[2021-03-09] MEDS ORDERED: THIAMINE 100MG TABLET PO ONE (18:30)
[2021-03-09] MEDS ORDERED: SODIUM CHLORIDE 0.9% 1,000ML IVBOLUS ONE (18:30)
[2021-03-09 18:42] LABS: MEAN CORPUSCULAR HEMOGLOBIN 33.9 pg (27.5-34.5); MEAN CORPUSCULAR HGB CONC 33.5 g/dL (33.2-36.2); MEAN PLATELET VOLUME 6.9 fL (7.4-10.4); PLATELET COUNT 199 x10^3/uL (130-400); RED BLOOD COUNT 3.55 x10^6/uL (4.38-5.82)
--- NOTE | 2021-03-09 18:47 | NUR ---
report recieved from maureen guido
[2021-03-09 18:51] LABS: ALBUMIN 2.5 g/dL (3.4-5.0); ANION GAP 4 mmol/L (5-15); CALCIUM 7.9 mg/dL (8.5-10.1); CHLORIDE 105 mmol/L (98-107)
[2021-03-09 18:54] LABS: ALANINE AMINOTRANSFERASE 35 U/L (12-78); ALKALINE PHOSPHATASE 77 U/L (45-117); BILIRUBIN,TOTAL 0.2 mg/dL (0.2-1.0); CREATININE 0.56 mg/dL (0.7-1.3); TOTAL PROTEIN 6.8 g/dL (6.4-8.2)
[2021-03-09] MEDS ORDERED: THIAMINE 100MG TABLET ONE (18:55)
[2021-03-09] MEDS ORDERED: ONDANSETRON 2MG/ML, 2ML ONE (18:56)
[2021-03-09 19:47] LABS: BAND#(MANUAL) 0.13 x10^3/uL; BANDS%(MANUAL) 3 % (0-7); BASOS#(MANUAL) 0.04 x10^3/uL (0-0.1); BASOS% (MANUAL) 1 % (0-1); EOS#(MANUAL) 0.09 x10^3/uL (0.0-0.4); EOS% (MANUAL) 2 % (1-7); LYMPH#(MANUAL) 1.85 x10^3/uL (1-3.4); LYMPHS% (MANUAL) 43 % (22-44); MONOS#(MANUAL) 0.73 x10^3/uL (0.3-2.7); MONOS% (MANUAL) 17 % (2-9); REACTIVE LYMPHS % (MANUAL) 7 % (0-0); SEG#(MANUAL) 1.16 x10^3/uL (1.8-6.8); SEGS% (MANUAL) 27 % (42-75)
[2021-03-09 19:49] LABS: <PLATELET ESTIMATE> ADEQUATE; <PLT MORPHOLOGY> NORMAL PLT MORPH
[2021-03-09 20:43] LABS: MICROSCOPIC NOT IND
[2021-03-09 21:01] LABS: AMPHETAMINE SCREEN, URINE Negative (Negative); BARBITURATE SCREEN, URINE Negative (Negative); BENZODIAZEPINE SCREEN, URINE Positive (Negative); CANNABINOID SCREEN, URINE Negative (Negative); COCAINE SCREEN, URINE Negative (Negative); METHADONE SCREEN, URINE Negative (Negative); OPIATE SCREEN, URINE Negative (Negative)
--- NOTE | 2021-03-09 21:20 | NUR ---
SPOKE WITH ERP ABOUT DISPO. PT TO BE ADMITTED, LAB AT BEDSIDE FOR BLOOD CULTURES, ABX TO BE HUNG AFTER.
[2021-03-09] MEDS ORDERED: CEFTRIAXONE 1,000 MG in DEXTROSE 5% 50 ML IVPB ONE (21:30)
[2021-03-09] MEDS ORDERED: SODIUM CHLORIDE FLUSH 10ML SYR IVF PRN (21:30)
[2021-03-09] MEDS ORDERED: AZITHROMYCIN 500 MG in SODIUM CHLORIDE 0.9% 250 ML IVPB ONE (21:30)
[2021-03-09] MEDS ORDERED: KETOROLAC 30 MG/1 ML IV PRN (22:00)
[2021-03-09] MEDS ORDERED: LORazepam 1MG TABLET PO PRN ×2 (22:00)
[2021-03-09] MEDS ORDERED: BISACODYL 10 MG SUPP PR PRN (22:00)
[2021-03-09] MEDS ORDERED: POLYETHYLENE GLYCOL 17 GM PACKET PO PRN (22:00)
[2021-03-09] MEDS ORDERED: ONDANSETRON ODT 4 MG PO PRN (22:00)
[2021-03-09] MEDS ORDERED: LORazepam 2 MG/ML, 1ML IV PRN ×3 (22:00)
[2021-03-09] MEDS: ENOXAPARIN 40 MG/0.4 ML SQ SCH (22:00)
[2021-03-09] MEDS ORDERED: ONDANSETRON 2MG/ML, 2ML IVPush PRN (22:00)
[2021-03-09] MEDS ORDERED: ENALAPRILAT 1.25 MG/ML, 2ML IVPush PRN (22:00)
[2021-03-09] MEDS ORDERED: ACETAMINOPHEN 325 MG TABLET PO PRN (22:00)
[2021-03-09] MEDS ORDERED: LABETALOL 5MG/ML, 20ML IVPush PRN (22:00)
--- NOTE | 2021-03-09 23:03 | NUR ---
REPORT GIVEN TO ZOFIA MOORE. COVID SWAB COLLECTED, 2ND ABX HUNG
[2021-03-10 00:05] VITALS: BP 107/69
[2021-03-10] MEDS: DOXYCYCLINE 100 MG in DEXTROSE 5% 250 ML IV SCH ×2 (01:39→13:59)
[2021-03-10] MEDS: SODIUM CHLORIDE 0.9% 1,000 ML IV SCH ×2 (01:39→08:43)
[2021-03-10] MEDS: THIAMINE 200 MG, MVI ADULT 10 ML, FOLIC ACID 1 MG in D5%-0.9% NACL 1,000 ML IV SCH ×2 (02:49→08:08)
[2021-03-10 07:36] VITALS: BP 114/73
[2021-03-10] MEDS: GUAIFENESIN ER 600 MG TABLET PO SCH ×2 (08:42→20:53)
[2021-03-10] MEDS: SENNA/DOCUSATE TABLET PO SCH (08:42)
[2021-03-10 08:55] LABS: BASOPHILS % (AUTO) 1 % (0-1); EOSINOPHILS % (AUTO) 2 % (1-7); LYMPHOCYTES % (AUTO) 28 % (22-44); MEAN CORPUSCULAR HEMOGLOBIN 34.6 pg (27.5-34.5); MEAN CORPUSCULAR HGB CONC 33.8 g/dL (33.2-36.2); MEAN PLATELET VOLUME 6.9 fL (7.4-10.4); MONOCYTES % (AUTO) 24 % (2-9); NEUTROPHILS % (AUTO) 45 % (42-75); PLATELET COUNT 224 x10^3/uL (130-400); RED BLOOD COUNT 3.91 x10^6/uL (4.38-5.82); RED CELL DISTRIBUTION WIDTH 14.3 % (9.4-14.8)
[2021-03-10 09:03] LABS: ALBUMIN 2.7 g/dL (3.4-5.0); CALCIUM 8.1 mg/dL (8.5-10.1); CHLORIDE 107 mmol/L (98-107)
[2021-03-10 09:08] LABS: ALANINE AMINOTRANSFERASE 34 U/L (12-78); ALKALINE PHOSPHATASE 88 U/L (45-117); BILIRUBIN,TOTAL 0.5 mg/dL (0.2-1.0); CREATININE 0.68 mg/dL (0.7-1.3); TOTAL PROTEIN 7.4 g/dL (6.4-8.2)
[2021-03-10 09:18] LABS: ANION GAP 2 mmol/L (5-15)
[2021-03-10] MEDS: LORazepam 0.5MG TABLET PO PRN ×3 (11:53→21:06)
[2021-03-10 13:11] VITALS: BP 98/60
[2021-03-10 14:10] VITALS: BP 113/70
[2021-03-10] MEDS ORDERED: CEFTRIAXONE 1,000 MG in DEXTROSE 5% 50 ML IVPB SCH (21:00)
[2021-03-10 21:08] VITALS: BP 128/77
[2021-03-10] MEDS: ENOXAPARIN 40 MG/0.4 ML SQ SCH (22:15)
[2021-03-11 01:08] VITALS: BP 129/77
[2021-03-11] MEDS: SODIUM CHLORIDE 0.9% 1,000 ML IV SCH (01:12)
[2021-03-11] MEDS: DOXYCYCLINE 100 MG in DEXTROSE 5% 250 ML IV SCH ×2 (01:12→13:50)
[2021-03-11] MEDS: THIAMINE 200 MG, MVI ADULT 10 ML, FOLIC ACID 1 MG in D5%-0.9% NACL 1,000 ML IV SCH (02:38)
[2021-03-11 08:18] VITALS: BP 143/59
[2021-03-11] MEDS: SENNA/DOCUSATE TABLET PO SCH (09:00)
[2021-03-11] MEDS: LORazepam 0.5MG TABLET PO PRN (09:15)
[2021-03-11] MEDS: GUAIFENESIN ER 600 MG TABLET PO SCH (09:15)
[2021-03-11 12:50] VITALS: BP 128/72
[2021-03-11] MEDS ORDERED: DOXY100C2 PO (13:35)
[2021-03-11] MEDS ORDERED: CEFD300C37 PO (13:35)
== END 2021-03-11 16:50 | disposition home or self-care (01) | DRG 193 ==
LOC: ED 03-10 00:06 → EDIP 03-10 00:18 → 3N 03-10 00:47
PROVIDERS: ADMIT Family Medicine; ATTEND Family Medicine
DX: J15.9 Unspecified bacterial pneumonia (principal); J96.01 Acute respiratory failure with hypoxia; F10.221 Alcohol dependence with intoxication delirium; S22.41XA Multiple fractures of ribs, right side, initial encounter for closed fracture; J44.0 Chronic obstructive pulmonary disease with (acute) lower respiratory infection; F17.210 Nicotine dependence, cigarettes, uncomplicated; I10 Essential (primary) hypertension; Y90.7 Blood alcohol level of 200-239 mg/100 ml; Z20.822 Contact with and (suspected) exposure to COVID-19; X58.XXXA Exposure to other specified factors, initial encounter; Y93.89 Activity, other specified; Y92.89 Other specified places as the place of occurrence of the external cause; Z87.01 Personal history of pneumonia (recurrent); Z59.0 Homelessness; Z90.49 Acquired absence of other specified parts of digestive tract; Y99.8 Other external cause status
CPT/HCPCS: 36415; 84145; J7042; 71045; 80053; 80307; 80320; 81003; 83605; 83735; 84100; 85025; 87040; 93005; G0378; J0456; J0696; J3411; J7060; U0005; G0480; J7030; J7050; U0003

== ENCOUNTER 2021-03-13 03:43 | Emergency (ER) | payer MEDICAID ==
[~2021-03-13] VITALS: Ht 172.7 cm; Wt 70.0 kg
[~2021-03-13 03:43] MED LIST changes: +DOXY100C2 PO
--- NOTE | 2021-03-13 04:02 | NUR ---
PT TO ROOM, GAIT STEADY. EKG DONE IN TRIAGE.
[2021-03-13] MEDS ORDERED: CEFDINIR 300 MG CAPSULE PO ONE (05:30)
[2021-03-13] MEDS ORDERED: DOXYCYCLINE 100MG TABLET PO ONE (05:30)
[2021-03-13] MEDS ORDERED: CEFDINIR 300 MG CAPSULE ONE (05:40)
[2021-03-13] MEDS ORDERED: DOXYCYCLINE 100MG TABLET ONE (05:40)
[2021-03-13 05:49] LABS: MEAN CORPUSCULAR HGB CONC 34.4 g/dL (33.2-36.2); PLATELET COUNT 320 x10^3/uL (130-400); RED BLOOD COUNT 3.45 x10^6/uL (4.38-5.82)
[2021-03-13 06:12] VITALS: BP 120/79
[2021-03-13 06:22] LABS: BASOS#(MANUAL) 0.17 x10^3/uL (0-0.1); BASOS% (MANUAL) 4 % (0-1); EOS% (MANUAL) 7 % (1-7); LYMPH#(MANUAL) 2.02 x10^3/uL (1-3.4); LYMPHS% (MANUAL) 47 % (22-44); MONOS#(MANUAL) 0.52 x10^3/uL (0.3-2.7); MONOS% (MANUAL) 12 % (2-9); SEG#(MANUAL) 1.29 x10^3/uL (1.8-6.8); SEGS% (MANUAL) 30 % (42-75)
[2021-03-13 06:23] LABS: <PLATELET ESTIMATE> ADEQUATE; <PLT MORPHOLOGY> NORMAL PLT MORPH; TARGET CELLS 1+
== END 2021-03-13 06:28 | disposition home or self-care (01) ==
LOC: ED 04:30
DX: J18.0 Bronchopneumonia, unspecified organism (principal); I45.19 Other right bundle-branch block; I10 Essential (primary) hypertension; J44.9 Chronic obstructive pulmonary disease, unspecified; F17.200 Nicotine dependence, unspecified, uncomplicated; K21.9 Gastro-esophageal reflux disease without esophagitis
CPT/HCPCS: 36415; 71046; 85025; 93005; 99285